=== PATIENT | female | born 1975 | race Caucasian/White ===

== ENCOUNTER 2020-05-20 10:30 | Outpatient (RCR) | payer OTHER, SELFPAY ==
--- NOTE | 2020-03-10 09:42 | PTOPEVAL ---
Thank you for referring Ree May to [facility]. Please review, sign, date and return this plan of care FABRIZIO. I agree with and certify that the following plan of care is medically necessary. Referring Physician Date Attending Provider: PHYSICIAN NOT ON STAFF Referring Provider: Jorgito Olmedo DMD *PT Outpatient Evaluation Start: 03/04/20 11:00 Status: Active Protocol: Document 03/04/20 11:00 [facility] Therapy Assessment Status Assessment Status Assessment Status Evaluation Outpatient Past Medical History Gastrointestinal History Hx Esophageal Disorders Yes: has stricture Hx Gastroesophageal Reflux Disease Yes Hx Other Gastrointestinal Disorders Yes: unable to swallow meat Musculoskeletal History Hx Back Pain Yes: Back pain; shoulder pain Hx Other Musculoskeletal Disorders Yes: chronic TMJ Endocrine History Hx Thyroidectomy Yes: ~7 yrs ago secondary to cancer Pain History Has Past Pain Affected Your Daily Life Yes: Thorax/back pain; upper abdominal;TMJ Any Barriers to Reporting Pain and Using Yes: weened of antidepressants Analgesics Anesthesia History Hx Other Anesthesia Reactions Yes: doesn't tolerate general anesthetic Other History Hx Cancer Yes: thyroid Evaluation Information Problem Diagnosis TMJ Onset ~1 month ago Cause choked on meat and triggered spasm/stress response Subjective Information Pt reports the above incident Query Text:As Reported By Patient/ resulted in vomiting for 12 Family hours, going to ED, being intubated. This has reflared her TMJ, chest, and back pain. Diagnostic Tests Other Tests For This Problem They are recommending a scope. She is deciding when she will have that done. Previous Treatments Previous Treatments For This Problem Pt has always responded well to JFB MFR technique Prior Level of Function Home Setting Home Type House Living Situation With Minor Child,With Spouse Pain Assessment Timing of Pain Assessment Timing of Pain Assessment Assessment Pain Scale Pain Scale Used Numeric (1 - 10) Self Report Pain Assessment Bilateral Reported Pain Level 6 Pain Description Aching,Aarti,Crushing, Pressure,Radiating,Shooting, Tender on Palpation,Tightness Pain Frequency Continuous Pain Level Goal 3 Interventi
--- NOTE | 2020-06-08 10:33 | PCPTNOTE ---
The patient will be continuing care under V#[id number]
== END 2020-05-29 11:47 | disposition home or self-care (01) ==
LOC: ANHPT 10:30
DX: M26.629 Arthralgia of temporomandibular joint, unspecified side (principal)
CPT/HCPCS: 97110; 97140; 97161

== ENCOUNTER 2020-07-20 10:30 | Outpatient (RCR) | payer OTHER, SELFPAY ==
--- NOTE | 2020-06-01 10:36 | PCPTNOTE ---
This V# is a continuation of [id number]
--- NOTE | 2020-06-08 14:04 | PTOPEVAL ---
Thank you for referring Ree May to [facility].? The patient is scheduled to be seen for therapy? 1x/month for 3 months. Please review, sign, date and return this plan of care FABRIZIO. I agree with and certify that the following plan of care is medically necessary. Referring Physician Date Attending Provider: PHYSICIAN NOT ON STAFF *PT Outpatient Progress Start: 06/01/20 10:37 Status: Active Document 06/01/20 13:19 [facility] [address] (Rec: 06/08/20 14:02 [facility] [address] [address] [id number]) Therapy Assessment Status Assessment Status Assessment Status Progress Yes: thyroid Pain Assessment Timing of Pain Assessment Timing of Pain Assessment Re-assessment Pain Scale Pain Scale Used Numeric (1 - 10) Self Report Pain Assessment Right Jaw(s) Reported Pain Level 6 Right Shoulder(s) Reported Pain Level 3 Left Hip(s) Reported Pain Level 3 Pain Score Pain Score 3,3,6: Self Report Cervical and Lumbar ROM Cervical ROM Cervical Flexion (0-60) 45 Query Text:Active in Degrees Cervical Extension (0-70) 70 Query Text:Active in Degrees Cervical Lateral Flexion Right (0-50) 50 Query Text:Active in Degrees Cervical Lateral Flexion Left (0-50) 30 Query Text:Active in Degrees Cervical Rotation Right (0-90) 70 Query Text:Active in Degrees Cervical Rotation Left (0-90) 90 Query Text:Active in Degrees Cervical ROM Comments Pt rests in R Sidebent position TMJ ROM TMJ Opening (0-60 MM) 20 TMJ Lateral Opening Right (0-20MM) 5 TMJ Lateral Opening Left (0-20 MM) 10 Deviation with Opening Riyck-Hutw-Wmujr Upper Extremity Range of Motion General Upper Extremity Range of Motion Reason Not Measured WNL/Right Gross Upper Extremity Range of Motion Discomfort at 140; with ROM Comments there was a pop with relief Lower Extremity Range of Motion General Lower Extremity Range of Motion Reason Not Measured WFL/Left Gross Lower Extremity Range of Motion Pt fell on L hip and it is Comments approximated in the pelvis Muscle Length Testing Muscle Length Testing Scalene Group Muscle Length (R) Moderate Tightness,(L) Query Text: Moderate Tightness Scalenes Posterior Muscle Length (R) Moderate Tightness,(L) Query Text: Moderate Tightness Upper Trapezius Muscle Length (R) Mild Tightness,(L) Mild Tightness Levaetor Scapulae Muscle Length (R) Moderate Tightness,(L) Moderate Tightness Sternocleidomastoid Muscle Length (L) Mild Tightness,(R) Moderate Tightness Pectoralis Major- Clavicular Fibers (R) Mild Tightness,(L) Mild
--- NOTE | 2020-11-16 12:54 | PCPTNOTE ---
PHYSICAL THERAPY DISCHARGE Attending Provider: PHYSICIAN NOT ON STAFF Patient:Ree May Date of :1975 Patient has not returned for any further treatments since 07/20/2020, therefore she will be discharged at this time. The goals were met with decreased pain/symptoms. Pt left for vacation in August and did not feel need to return for services. Thank you for referring this patient to [facility]. Please review, sign, date and return this discharge summary FABRIZIO. I have been updated about the patient's current status and I agree with discharge from the above service at this time. Referring Physician Date
== END 2020-09-22 23:59 | disposition home or self-care (01) ==
LOC: ANHPT 10:30
DX: M26.629 Arthralgia of temporomandibular joint, unspecified side (principal)
CPT/HCPCS: 97110; 97140

== ENCOUNTER → 2020-10-30 10:10 | Outpatient (CLI) | payer OTHER, SELFPAY ==
--- NOTE | ~2020-10-30 | MM_ITS ---
EXAMINATION: MM scrn maru implant BI w jazmine HISTORY: Screening mammogram TECHNIQUE: Craniocaudal and mediolateral oblique 3-D tomosynthesis images with implant displacement a nd synthetic 2-D images were generated. Craniocaudal and mediolateral oblique views of the breasts wi thout implant displacement were obtained using full field digital mammography. CAD analysis was submi tted and interpreted. COMPARISON: Comparison to multiple prior studies sequentially, with oldest reviewed study dated 02/20. BREAST PARENCHYMAL COMPOSITION: The breasts are heterogeneously dense, which may obscure small masses . FINDINGS: There is no evidence of suspicious mass, calcification, or architectural distortion to sugg est malignancy in either breast. There has been no suspicious interval change. IMPRESSION: 1. No mammographic evidence of malignancy. 2. Recommend routine screening mammography in one year. BI-RADS Category 1: Negative Reviewed, dictated and finalized at location A. AGENT
== END ==
PROVIDERS: Visit Provider Obstetrics & Gynecology
DX: Z12.31 Encounter for screening mammogram for malignant neoplasm of breast (principal)
CPT/HCPCS: 77063; 77067

== ENCOUNTER 2020-11-09 07:32 | Outpatient (CLI) | payer OTHER, SELFPAY ==
--- NOTE | 2020-11-09 07:57 | ECHO_ITS ---
Patient Info Name: Ree Cohen Black Age: 45 years : 1975 Gender: Female Ht: 68 in Wt: 130 lbs BSA: 1.68 m2 HR: 60 bpm BP: 119 / 78 mmHg Technical Quality: Fair Exam Date: 11/09/2020 8:11 AM Exam Location: [facility] Patient Status: Outpatient Admit Date: 11/09/2020 Staff Ordering Physician: Govind Rojas DO Forwarder Operator: Maria Luisa Alvares RDCS Attending Provider: Govind Rojas DO Referring Physician: Bob PARRA; Exam Type: CA echo doppler color flow Study Info Indications I34.1 - Nonrheumatic mitral (valve) prolapse Complete two-dimensional, color flow and Doppler transthoracic echocardiogram is performed. Summary 1. Complete two-dimensional, color flow and Doppler transthoracic echocardiogram is performed. 2. Left ventricular chamber dimension is normal. 3. Left ventricular systolic function is normal, estimated at 60-65%. 4. The left ventricular diastolic function is normal. 5. E/e' 7 is not elevated. 6. Left atrial chamber dimension is mildly enlarged. 7. The mitral valve has moderate posterior prolapse. 8. No pulmonary hypertension, estimated pulmonary arterial systolic pressure is 29 mmHg. Left Ventricle E/e' 7 is not elevated. Left ventricular chamber dimension is normal. Left ventricular systolic function is normal, estimated at 60-65%. The left ventricular diastolic function is normal. Right Ventricle Right ventricular chamber dimension is normal. Right ventricular systolic function is normal. Left Atria Left atrial chamber dimension is mildly enlarged. Right Atria Right atrial chamber dimension is normal. Aortic Valve The aortic valve is trileaflet. There is no aortic valve stenosis. There is no aortic valve regurgitation. Pulmonic Valve There is no pulmonic regurgitation. Mitral Valve The mitral valve has moderate posterior prolapse. There is no mitral valve stenosis. There is no mitral valve regurgitation. Tricuspid Valve There is no tricuspid valve regurgitation. No pulmonary hypertension, estimated pulmonary arterial systolic pressure is 29 mmHg. Pericardium/Pleural There is no pericardial effusion. Inferior Vena Cava Normal inferior vena cava with >50% collapse upon inspiration consistent with normal right atrial pressure, 5 mmHg. Aorta The aortic root size at the sinus of Valsalva is normal. Left Ventricular Outflow Tract Name Value Normal LVOT 2D LVOT Diameter 2.0 cm LVOT Doppler LVOT Peak Gradient 3 mmHg LVOT Mean Gradient 2 mmHg LVOT VTI 19 cm LVOT VTI/AV VTI Ratio 0.9 LVOT Stroke Volume 56 ml LVOT CO 3.3 l/min LVOT CI 2.0 l/min/m2 Pulmonic Valve Name Value Normal RVOT Doppler
== END 2020-11-09 07:33 | disposition home or self-care (01) ==
PROVIDERS: PCP Family Medicine; Visit Provider Internal Medicine Cardiovascular Disease
DX: I34.1 Nonrheumatic mitral (valve) prolapse (principal); I51.7 Cardiomegaly
CPT/HCPCS: 93306

== ENCOUNTER → 2021-11-16 10:25 | Outpatient (CLI) | payer OTHER, SELFPAY ==
--- NOTE | ~2021-11-16 | MM_ITS ---
EXAMINATION: MM scrn maru implant BI w jazmine HISTORY: Screening TECHNIQUE: Craniocaudal and mediolateral oblique 3-D tomosynthesis images with implant displacement a nd synthetic 2-D images were generated. Craniocaudal and mediolateral oblique views of the breasts wi thout implant displacement were obtained using full field digital mammography. CAD analysis was submi tted and interpreted. COMPARISON: Comparison to multiple prior studies sequentially, with oldest reviewed study dated 02/27. BREAST PARENCHYMAL COMPOSITION: The breasts are heterogenously dense, which may obscure small masses FINDINGS: There is no evidence of suspicious mass, calcification, or architectural distortion to sugg est malignancy in either breast. There has been no suspicious interval change. IMPRESSION: 1. No mammographic evidence of malignancy. 2. Recommend routine screening mammography in one year. BI-RADS Category 1: Negative Reviewed, dictated and finalized at location A. NER OPEN END
== END ==
PROVIDERS: Visit Provider Obstetrics & Gynecology
DX: Z12.31 Encounter for screening mammogram for malignant neoplasm of breast (principal)
CPT/HCPCS: 77063; 77067

== ENCOUNTER → 2022-11-29 11:47 | Outpatient (CLI) | payer BC, SELFPAY ==
--- NOTE | ~2022-11-29 | MM_ITS ---
EXAMINATION: MM scrn maru implant BI w jazmine HISTORY: Comparison to multiple prior studies sequentially, with oldest reviewed study dated 05/27/20 16. TECHNIQUE: Craniocaudal and mediolateral oblique 3-D tomosynthesis images with implant displacement a nd synthetic 2-D images were generated. Craniocaudal and mediolateral oblique views of the breasts wi thout implant displacement were obtained using full field digital mammography. CAD analysis was submi tted and interpreted. COMPARISON: No prior mammogram is available for comparison at this institution. BREAST PARENCHYMAL COMPOSITION: The breasts are heterogeneously dense, which may obscure small masses . FINDINGS: There are asymmetries in the left breast seen on both implant displaced and implant views. The right breast is stable without evidence for malignancy. IMPRESSION: 1. Left breast asymmetries. 2. Additional mammographic views and possible breast ultrasound are recommended. BI-RADS Category 0: Incomplete: Needs additional imaging evaluation. Reviewed, dictated and finalized at location A. IMPRESSION: 1. Left breast asymmetries. 2. Additional mammographic views and possible breast ultrasound are recommended . BI-RADS Category 0: Incomplete: Needs additional imaging evaluation.
== END ==
PROVIDERS: PCP Family Medicine; Visit Provider Obstetrics & Gynecology
DX: Z12.31 Encounter for screening mammogram for malignant neoplasm of breast (principal); R92.8 Other abnormal and inconclusive findings on diagnostic imaging of breast
CPT/HCPCS: 77063; 77067

== ENCOUNTER 2022-12-06 00:39 | Day surgery (SDC) | payer BC, SELFPAY ==
[2022-11-23 14:11] VITALS: BMI 21.0
[2022-12-06 08:00] VITALS: BP 105/64; PULSE 67; RESP 20; TEMP 36.8; O2SAT 100; BMI 20.5
[2022-12-06] MEDS: LACTATED RINGERS 1,000 ML 150 ML IV CONT (08:13)
--- NOTE | 2022-12-06 08:28 | PM.HPGS ---
History of Present Illness History of Present Illness Consent: Risks, benefits, and alternatives have been discussed and questions answered. Patient agrees to proceed with procedure. Chief complaint: neoplam screening Narrative: Ree May is a 47 year old female Presents for screening colonoscopy. Patient's current weight appetite and bowel movements are normal. Patient denies abdominal pain. She has had no bleeding. Family history is significant both father and sister have had colon polyps. Her grandfather had colon cancer. Patient presents today for screening exam. Review of Systems Review of Systems: Review of systems noncontributory. [facility] Past Medical History Medical History Acne vulgaris Acute bronchitis, unspecified Acute sinusitis with symptoms > 10 days Allergic rhinitis, unspecified Anxiety BMI between 19-24,adult Body mass index [BMI] 20.0-20.9, adult (09/26/18) Chest discomfort Cough Dietary counseling and surveillance (12/18/17) Encounter for screening for lipoid disorders GERD without esophagitis Hiatal hernia Hx of mitral valve prolapse Insomnia, unspecified Low vitamin D level Mitral valve prolapse Other specified hypothyroidism Pain of upper abdomen Sleep arousal disorder Tension headache Thyroid cancer Surgical History Surgical History History of mitral valve repair History of thyroidectomy Family History Family History Father Hypertension Family history of coronary artery disease Family history of elevated blood lipids Family history of arthritis Family history of kidney disease Grandparent Hypertension Cerebrovascular accident Carcinoma of colon Family history of coronary artery disease Mother Family history of elevated blood lipids Family history of arthritis Other Family history of lung cancer Social History Social History Smoking status: Never smoker Second hand tobacco smoke exposure: Yes Alcohol intake: current Drinks per week: 3 Substance use: never Substance use type: does not use Living arrangements: with family Occupation/Education: occupation Gender identity (if verbalized by the patient): Female Spiritual care concerns: No Meds Home Medications and Allergies Home Medications Medication Instructions Recorded Confirmed Type thyroid (pork) 90 mg tablet 90 mg PO DAILY 10/07/19 11/23/22 History ([place] Thyroid) estradiol 0.5 mg/0.5 gram (0.1 %) 1 packet transdermal DAILY 10/08/19 11/23/22 History transdermal gel packet progesterone micronized 100 mg 100 mg PO QAM 10/08/19 11/23/22 History capsule levothyroxine 25 mcg tablet 25 mcg PO DAILY 11/23/22 11/23/22 History Allergies Allergy/AdvReac Type Severity Reaction Status Date / Time attapulgite Allergy Unknown HIVES Verified 12/06/22 07:58 camphor Allergy Unknown Unknown Verified 12/06/22 07:58 menthol Allergy Unknown Unknown Verified 12/06/22 07:58 fentanyl AdvReac Severe SEVERE, Verified 12/06/22 07:58 PROLONGED N&V Vital Signs Vital Signs - 24 hr 12/06/22 08:00 Temperature 98.2 F Pulse Rate 67 Respiratory Rate 20 Blood Pressure 105/64 Pulse Oximetry 100 Oxygen Delivery Room Air Exam Narrative: Physical exam reveals patient to be alert. Vital signs stable. HEENT exam is unremarkable. Patient is anicteric. Lungs are clear to auscultation and percussion. Heart is without murmur or extra sounds. Abdomen bowel sounds are present soft nontender with no organomegaly. Digital external rectal exam is normal. Assessment and Plan Assessment and plan (1) Family history of colonic polyps: Code(s): Z83.71 - Family history of colonic polyps Status: Acute Assessment and Plan: Patient has a family
--- NOTE | 2022-12-06 08:45 | WPDANESEPPF ---
Anes - Initial Pre Proc Eval Procedure: Operation Date: 12/06/22 09:00 Proposed Procedures p Screening Colonoscopy - Chad Cardoso MD Date/Time: 12/06/22 08:45 Surgeon: Chad Cardoso MD Pre Op Diagnosis: neoplam screening Patient Data Age: 47 Gender: F Height: 1.7 m Weight: 59.5 kg Last Vital Signs Temp 98.2 F 12/06/22 08:00 Pulse 67 12/06/22 08:00 Resp 20 12/06/22 08:00 BP 105/64 12/06/22 08:00 Pulse Ox 100 12/06/22 08:00 O2 Del Method Room Air 12/06/22 08:00 Allergies Allergy/AdvReac Type Severity Reaction Status Date / Time attapulgite Allergy Unknown HIVES Verified 12/06/22 07:58 camphor Allergy Unknown Unknown Verified 12/06/22 07:58 menthol Allergy Unknown Unknown Verified 12/06/22 07:58 fentanyl AdvReac Severe SEVERE, Verified 12/06/22 07:58 PROLONGED N&V Home Medications Medication Instructions Recorded Confirmed Type thyroid (pork) 90 mg tablet 90 mg PO DAILY 10/07/19 11/23/22 History ([place] Thyroid) estradiol 0.5 mg/0.5 gram (0.1 %) 1 packet transdermal DAILY 10/08/19 11/23/22 History transdermal gel packet progesterone micronized 100 mg 100 mg PO QAM 10/08/19 11/23/22 History capsule levothyroxine 25 mcg tablet 25 mcg PO DAILY 11/23/22 11/23/22 History Patient hx anesthesia problems: none Family hx anesthesia problems: none Results Review: All pre-operative results and documents have been reviewed as part of the pre-operative evaluation. [facility] Past Medical History Medical History Acne vulgaris Acute bronchitis, unspecified Acute sinusitis with symptoms > 10 days Allergic rhinitis, unspecified Anxiety BMI between 19-24,adult Body mass index [BMI] 20.0-20.9, adult (09/26/18) Chest discomfort Cough Dietary counseling and surveillance (12/18/17) Encounter for screening for lipoid disorders GERD without esophagitis Hiatal hernia Hx of mitral valve prolapse Insomnia, unspecified Low vitamin D level Mitral valve prolapse Other specified hypothyroidism Pain of upper abdomen Sleep arousal disorder Tension headache Thyroid cancer Surgical History Surgical History History of mitral valve repair History of thyroidectomy Family History Family History Father Hypertension Family history of coronary artery disease Family history of elevated blood lipids Family history of arthritis Family history of kidney disease Grandparent Hypertension Cerebrovascular accident Carcinoma of colon Family history of coronary artery disease Mother Family history of elevated blood lipids Family history of arthritis Other Family history of lung cancer Social History Social History Smoking status: Never smoker Second hand tobacco smoke exposure: Yes Alcohol intake: current Drinks per week: 3 Substance use: never Substance use type: does not use Living arrangements: with family Occupation/Education: occupation Gender identity (if verbalized by the patient): Female Spiritual care concerns: No Anes - Eval Final PreProcedure Day of Procedure 12/06/22 08:45 Patient weight: normal Heart: regular rate and rhythm Lungs: clear to auscultation Airway: Mallampati scale class II Neurological: alert and oriented Last oral intake: >/= 8 hours ASA classification: III Emergent: no Anesthetic plan: proceed Anesthesia type and monitoring: general GIVS and standard monitoring Results Review: All pre-operative results and documents have been reviewed as part of the pre-operative evaluation. Informed Consent: The patient's anesthetic plan and its attendant risks and benefits were discussed with the patient/family/POA. Questions were solicited and answers provided to the satisfaction of the patient/family/POA.
[2022-12-06 09:36] VITALS: BP 84/47; PULSE 57; RESP 14; O2SAT 99
[2022-12-06 09:42] VITALS: BP 93/59; PULSE 68; RESP 21; O2SAT 100
[2022-12-06 09:46] VITALS: BP 117/62; PULSE 72; RESP 21; O2SAT 100
[2022-12-06 09:56] VITALS: BP 105/67; PULSE 61; RESP 17; O2SAT 100
== END 2022-12-06 10:10 | disposition home or self-care (01) ==
PROVIDERS: PCP Family Medicine; Visit Provider Internal Medicine Gastroenterology
PROC: 0DJD8ZZ Inspection of Lower Intestinal Tract, Via Natural or Artificial Opening Endoscopic (ICD-10-PCS; CPT 45378; principal; 2022-12-06 09:00)
DX: Z12.11 Encounter for screening for malignant neoplasm of colon (principal); K64.8 Other hemorrhoids; Z86.73 Personal history of transient ischemic attack (TIA), and cerebral infarction without residual deficits; E89.0 Postprocedural hypothyroidism; Z85.850 Personal history of malignant neoplasm of thyroid
CPT/HCPCS: 45378; J2704; J7120

== ENCOUNTER → 2022-12-27 08:53 | Outpatient (CLI) | payer BC, SELFPAY ==
--- NOTE | ~2022-12-27 | MMUS_ITS ---
EXAMINATION: MM diag maru implant LT w jazmine, US breast LT limited HISTORY: Left breast asymmetries on screening mammogram TECHNIQUE: Craniocaudal, mediolateral, and mediolateral oblique 3-D tomosynthesis images with implant displacement of the left breast were performed and synthetic 2-D images were generated. Mediolatera l views of the left breast without implant displacement were obtained using full field digital mammog vic. CAD analysis was submitted and interpreted. High resolution limited left breast ultrasound was performed. COMPARISON: 11/29/2022, 11/16/2021, 10/30/2020 , 10/07/2019 FINDINGS: MAMMOGRAPHIC FINDINGS: There is a return to baseline fibroglandular appearance with spot compression of the left breast in t he areas questioned on screening mammogram. ULTRASOUND: There is a 4 mm round, circumscribed, hypoechoic mass with mild posterior acoustic enhancement and no internal vascularity at the 12:00 location, 3 cm from the nipple. There is a 5 mm x 2 mm oval, circu mscribed, parallel, hypoechoic mass with no posterior features or internal vascularity at the 1:00 lo cation, 7 cm from the nipple. Small cysts are noted at the 12:00 and 1:00 locations. IMPRESSION: 1. Probably benign sonographically detected left breast masses. 2. Recommend 6 month follow-up left diagnostic mammogram and ultrasound. BI-RADS category 3, probably benign findings. Reviewed, dictated and finalized at location A. IMPRESSION: 1. Probably benign sonographically detected left breast masses. 2. Recommend 6 month follow-up left diagnostic mammogram and ultrasound. BI-RADS category 3, probably benign findings.
== END ==
PROVIDERS: PCP Family Medicine; Visit Provider Obstetrics & Gynecology
DX: N63.20 Unspecified lump in the left breast, unspecified quadrant (principal)
CPT/HCPCS: 76642; 77061; 77065; G0279

== ENCOUNTER → 2023-06-15 08:53 | Outpatient (CLI) | payer BC, SELFPAY ==
--- NOTE | ~2023-06-15 | MMUS_ITS ---
EXAMINATION: MM diag maru implant LT w jazmine, US breast LT limited HISTORY: Six-month follow-up for probably benign left breast masses TECHNIQUE: Craniocaudal, mediolateral, and mediolateral oblique 3-D tomosynthesis images with implant displacement of the left breast were performed and synthetic 2-D images were generated. Craniocauda l, mediolateral oblique, and mediolateral views of the left breast without implant displacement were obtained using full field digital mammography. CAD analysis was submitted and interpreted. High resol ution left breast ultrasound was performed. COMPARISON: 12/27/2022, 11/29/2022, 11/16/2021 BREAST PARENCHYMAL COMPOSITION: The breasts are heterogeneously dense, which may obscure small masses . FINDINGS: MAMMOGRAPHIC FINDINGS: No suspicious mass, calcification, or architectural distortion are identified to suggest malignancy. There has been no suspicious interval change. ULTRASOUND: There is a stable 4 mm round, circumscribed, hypoechoic mass with no posterior features or internal v ascularity at the 12:00 location, 3 cm from the nipple. There is a stable 5 mm x 2 mm oval, circumscr ibed, parallel, hypoechoic mass with no posterior features or internal vascularity at the 1:00 locati on, 8 cm from the nipple. IMPRESSION: 1. Stable, probably benign left breast masses. 2. Recommend 6 month follow-up bilateral diagnostic mammogram and left breast ultrasound. BI-RADS category 3, probably benign findings. Reviewed, dictated and finalized at location A. IMPRESSION: 1. Stable, probably benign left breast masses. 2. Recommend 6 month follow-up bilateral diagnostic mammogram and left breast u ltrasound. BI-RADS category 3, probably benign findings.
== END ==
PROVIDERS: PCP Obstetrics & Gynecology; Visit Provider Obstetrics & Gynecology
DX: R92.8 Other abnormal and inconclusive findings on diagnostic imaging of breast (principal)
CPT/HCPCS: 76642; 77061; 77065; G0279

== ENCOUNTER 2025-03-25 13:17 | Outpatient (CLI) | payer OTHER, SELFPAY ==
--- NOTE | ~2025-03-25 | US_ITS ---
US pelvic complete w TV Ordering provider: Elgin Ford MD History: . N95.0 - Postmenopausal bleeding . Comparison: None. Technique: Transabdominal and endovaginal ultrasound of the pelvis (Doppler ultrasound interrogation techniques used as needed for this exam.) FINDINGS: CERVIX: Normal. UTERUS: Measures 5.6x 3.2x 4 cm in length which is within normal limits and is anteverted. No myomet rial masses. ENDOMETRIUM: Normal in thickness measuring 4 mm. (Calcified. CUL DE SAC: No free fluid. RIGHT OVARY: Not demonstrated. LEFT OVARY: Not demonstrated. ADNEXA: Normal. No mass. IMPRESSION: Calcified endometrium. Nonvisualization of the ovaries. Otherwise, normal pelvic ultrasound. Reviewed, dictated and finalized at location A. IMPRESSION: Calcified endometrium. Nonvisualization of the ovaries. Otherwise, normal pelvi c ultrasound.
== END 2025-03-25 13:18 | disposition home or self-care (01) ==
LOC: MICIMG 13:18
PROVIDERS: PCP Obstetrics & Gynecology; Visit Provider Obstetrics & Gynecology
DX: N85.8 Other specified noninflammatory disorders of uterus (principal); N95.0 Postmenopausal bleeding
CPT/HCPCS: 76830; 76856

== ENCOUNTER 2025-08-14 04:27 | Day surgery (SDC) | payer OTHER, SELFPAY ==
--- OUTSIDE RECORDS SUMMARY | 2018-08-22 | XMS_ITS | Encounter Summary ---
Author Organization [facility] Healthcare Address [address] [place] [address] Care Team Providers Care Net Solutions Architect Name Role Phone Jorge Urias MD Primary Care Provider [phone] Reason for Visit * Diagnostic Imaging (Routine) - Closed Specialty Diagnoses / Procedures Referred By Alek patel Referred To Contact Procedures Breast Imaging Screening Outside Reference Transcribed Order, Provider Referral ID Status Reason Start Date Expiration Date Visits Re quested Visits Authorized [id number] Closed 01/19/2024 02/17/2025 1 1 Encounter Details Date Type Department Care Team (Late st Contact Info) Description 08/22/2018 Hospital Encounter [facility] [address] [place] [id number] Social History Tobacco Use Types Packs/Day Years Used Date Smoking Tobacco: Never Passive Smoke Exposure: Never Smokeless Tobacco: Never AUDIT-C Answer Date Recorded Q1: How often do you have a drink containing alc ohol? 2-3 times a week 03/22/2024 Q2: How many drinks containi ng alcohol do you have on a typical day when you are drinking? 1 or 2 03/22/2024 Frequency of Binge Drinking Not on file 03/11 Comments Unknown Sex and Gender Information Value Date Recorded Sex Assigned at Not on file Legal Sex Female 7:05 AM OLERICULTURIST Gender Identity Female 07/13/2021 1:56 PM CDT Sexual Orientation Not on file documented as of this encounter Functional Status * BP Location Answer Date of Assessment Author Left arm 08/22/2023 4:04 PM OLERICULTURIST Yusuf Lino, CHIP MUCKER * Alcohol Withdrawal BP Hierarchy Answer Date of Assessment Author 76 08/23/2022 3:51 PM OLERICULTURIST Noa Sol CMA * Alcohol Use Question Answer Date of Assessment Author Q1: How often do you have a drink containing alcohol? 2-3 times a week 03/22/2024 8:08 AM CDT Jocelynn Lind RMA Q2: How many drinks containing alcohol do you have on a typical day when you are drinking? 1 or 2 03/22/2024 8:08 AM CDT Suyapa Lind RMA * BP Location Answer Date of Assessment Author Left arm 08/22/2023 4:04 PM OLERICULTURIST Yusuf Lino CMA documented as of this encounter Plan of Treatment Not on file documented as of this encounter Procedures Procedure Name Priority Date/Time Associated Diagnosis Comments BREAST IMAGING MG SCREENING OUTSIDE REFERENCE Routine 08/22/2018 12:00 AM OLERICULTURIST documented in this encounter Results * Breast Imaging Screening Outside Reference (08/22/2018 12:00 AM OLERICULTURIST) Impressions [facility] - 01/19/2024 12:12 PM CDT These images are for Reference purposes only and have not been reviewed by [facility]iology. There will be no report generated by a [facility] Radiologist. Narrative [facility] - 01/19/2024 12:12 PM CDT EXAMINATION: Images For Reference Purposes Only us Provider Transcribed Order IMG MAMMO PROCEDURES Final Result [facility] documented in this encounter Visit Diagnoses Not on filedocumented in this encounter Care Teams Net Solutions Architect Relationship Specialty Start Date End Date Jorge Urias MD PCP - General 04/19/17 documented as of this encounter
--- OUTSIDE RECORDS SUMMARY | 2018-08-22 | XMS_ITS | Encounter Summary ---
Author Organization [facility] Healthcare Address [address] [place] [address] Care Team Providers Care Picking Belt Operator Name Role Phone Jorge Urias MD Primary Care Provider [phone] Reason for Visit * Diagnostic Imaging (Routine) - Closed Specialty Diagnoses / Procedures Referred By Alek patel Referred To Contact Procedures Breast Imaging Screening Outside Reference Transcribed Order, Provider Referral ID Status Reason Start Date Expiration Date Visits Re quested Visits Authorized [id number] Closed 01/19/2024 02/17/2025 1 1 Encounter Details Date Type Department Care Team (Late st Contact Info) Description 08/22/2018 Hospital Encounter [facility] [address] [place] [id number] Social History Tobacco Use Types Packs/Day Years [...] on file Legal Sex Female 7:05 AM SWITCHBOX ASSEMBLER Gender Identity Female 07/13/2021 1:56 PM CDT Sexual Orientation Not on file documented as of this encounter Functional Status * BP Location Answer Date of Assessment Author Left arm 08/22/2023 4:04 PM SWITCHBOX ASSEMBLER Yusuf Lino, MIDDLE SCHOOL TUTOR * Alcohol Withdrawal BP Hierarchy Answer Date of Assessment Author 76 08/23/2022 3:51 PM SWITCHBOX ASSEMBLER Noa Sol CMA * Alcohol Use Question [...] Assessment Author Left arm 08/22/2023 4:04 PM SWITCHBOX ASSEMBLER Yusuf Lino CMA documented as of this encounter Plan of Treatment Not on file documented as of this encounter Procedures Procedure Name Priority Date/Time Associated Diagnosis Comments BREAST IMAGING MG SCREENING OUTSIDE REFERENCE Routine 08/22/2018 12:00 AM SWITCHBOX ASSEMBLER documented in this encounter Results * Breast Imaging Screening Outside Reference (08/22/2018 12:00 AM SWITCHBOX ASSEMBLER) Impressions [facility] - 01/19/2024 12:12 PM CDT These images are for Reference purposes only and have not been reviewed by [facility] Radiology. There will be no report generated by a [facility] Radiologist. Narrative [facility] - 01/19/2024 12:12 PM CDT EXAMINATION: Images For Reference Purposes Only us Provider Transcribed Order IMG MAMMO PROCEDURES Final Result [facility] documented in this encounter Visit Diagnoses Not on filedocumented in this encounter Care Teams Picking Belt Operator Relationship Specialty Start Date End Date Jorge Urias MD PCP - General 04/19/17 documented as of this encounter
--- OUTSIDE RECORDS SUMMARY | 2018-08-22 | XMS_ITS | Encounter Summary ---
Author Organization [facility] Healthcare Address [address] [place] [address] Care Team Providers Care Client Technical Professional Name Role Phone Jorge Urias MD Primary Care Provider [phone] Reason for Visit * Diagnostic Imaging (Routine) - Closed Specialty Diagnoses / Procedures Referred By Alek patel Referred To Contact Procedures Breast Imaging Screening Outside Reference Transcribed Order, Provider Referral ID Status Reason Start Date Expiration Date Visits Re quested Visits Authorized [id number] Closed 01/19/2024 02/17/2025 1 1 Encounter Details Date Type Department Care Team (Late st Contact Info) Description 08/22/2018 Hospital Encounter [facility] [address] [place] [id number] Social History Tobacco Use Types Packs/Day Years [...] on file Legal Sex Female 7:05 AM KILNMAN Gender Identity Female 07/13/2021 1:56 PM CDT Sexual Orientation Not on file documented as of this encounter Functional Status * BP Location Answer Date of Assessment Author Left arm 08/22/2023 4:04 PM KILNMAN Yusuf Lino, FOOT SPECIALIST * Alcohol Withdrawal BP Hierarchy Answer Date of Assessment Author 76 08/23/2022 3:51 PM KILNMAN Noa Sol CMA * Alcohol Use Question [...] Assessment Author Left arm 08/22/2023 4:04 PM KILNMAN Yusuf Lino CMA documented as of this encounter Plan of Treatment Not on file documented as of this encounter Procedures Procedure Name Priority Date/Time Associated Diagnosis Comments BREAST IMAGING MG SCREENING OUTSIDE REFERENCE Routine 08/22/2018 12:00 AM KILNMAN documented in this encounter Results * Breast Imaging Screening Outside Reference (08/22/2018 12:00 AM KILNMAN) Impressions [facility] - 01/19/2024 12:12 PM CDT These images are for Reference purposes only and have not been reviewed by [facility]. There will be no report generated by a [facility] Radiologist. Narrative [facility] - 01/19/2024 12:12 PM CDT EXAMINATION: Images For Reference Purposes Only us Provider Transcribed Order IMG MAMMO PROCEDURES Final Result [facility] documented in this encounter Visit Diagnoses Not on filedocumented in this encounter Care Teams Client Technical Professional Relationship Specialty Start Date End Date Jorge Urias MD PCP - General 04/19/17 documented as of this encounter
--- OUTSIDE RECORDS SUMMARY | 2019-10-07 | XMS_ITS | Encounter Summary ---
Author Organization [facility] Healthcare Address [address] [place] [address] Care Team Providers Care Internet Systems Administrator Name Role Phone Jorge Urias MD Primary Care Provider [phone] Reason for Visit * Diagnostic Imaging (Routine) - Closed Specialty Diagnoses / Procedures Referred By Alek patel Referred To Contact Procedures Breast Imaging Screening Outside Reference Transcribed Order, Provider Referral ID Status Reason Start Date Expiration Date Visits Re quested Visits Authorized [id number] Closed 01/19/2024 02/17/2025 1 1 Encounter Details Date Type Department Care Team (Late st Contact Info) Description 10/07/2019 Hospital Encounter [facility] [address] [place] [phone] Social History Tobacco Use Types Packs/Day Years [...] on file Legal Sex Female 7:05 AM REGISTERED NURSE OBSTETRICS Gender Identity Female 07/13/2021 1:56 PM CDT Sexual Orientation Not on file documented as of this encounter Functional Status * BP Location Answer Date of Assessment Author Left arm 08/22/2023 4:04 PM REGISTERED NURSE OBSTETRICS Yusuf Linoa, MIXER AND BLENDER * Alcohol Withdrawal BP Hierarchy Answer Date of Assessment Author 76 08/23/2022 3:51 PM REGISTERED NURSE OBSTETRICS Noa Sol CMA * Alcohol Use Question [...] Assessment Author Left arm 08/22/2023 4:04 PM REGISTERED NURSE OBSTETRICS Yusuf Lino CMA documented as of this encounter Plan of Treatment Not on file documented as of this encounter Procedures Procedure Name Priority Date/Time Associated Diagnosis Comments BREAST IMAGING MG SCREENING OUTSIDE REFERENCE Routine 10/07/2019 12:00 AM REGISTERED NURSE OBSTETRICS documented in this encounter Results * Breast Imaging Screening Outside Reference (10/07/2019 12:00 AM REGISTERED NURSE OBSTETRICS) Impressions [facility] - 01/19/2024 12:12 PM CDT These images are for Reference purposes only and have not been reviewed by [facility] Radiology. There will be no report generated by a [facility] Radiologist. Narrative [facility] - 01/19/2024 12:12 PM CDT EXAMINATION: Images For Reference Purposes Only us Provider Transcribed Order IMG MAMMO PROCEDURES Final Result [facility] documented in this encounter Visit Diagnoses Not on filedocumented in this encounter Care Teams Internet Systems Administrator Relationship Specialty Start Date End Date Jorge Urias MD PCP - General 04/19/17 documented as of this encounter
--- OUTSIDE RECORDS SUMMARY | 2019-10-07 | XMS_ITS | Encounter Summary ---
Author Organization [facility] Healthcare Address [address] [place] [address] Care Team Providers Care Protective Signal Repairer Name Role Phone Jorge Urias MD Primary Care Provider [phone] Reason for Visit * Diagnostic Imaging (Routine) - Closed Specialty Diagnoses / Procedures Referred By Alek patel Referred To Contact Procedures Breast Imaging Screening Outside Reference Transcribed Order, Provider Referral ID Status Reason Start Date Expiration Date Visits Re quested Visits Authorized [id number] Closed 01/19/2024 02/17/2025 1 1 Encounter Details Date Type Department Care Team (Late st Contact Info) Description 10/07/2019 Hospital Encounter [facility] [address] [place] [phone] Social History Tobacco Use Types Packs/Day Years [...] on file Legal Sex Female 7:05 AM AIR MOTOR REPAIRER Gender Identity Female 07/13/2021 1:56 PM CDT Sexual Orientation Not on file documented as of this encounter Functional Status * BP Location Answer Date of Assessment Author Left arm 08/22/2023 4:04 PM AIR MOTOR REPAIRER Yusuf Linoa, SHAVING MACHINE OPERATOR * Alcohol Withdrawal BP Hierarchy Answer Date of Assessment Author 76 08/23/2022 3:51 PM AIR MOTOR REPAIRER Noa Sol CMA * Alcohol Use Question [...] Assessment Author Left arm 08/22/2023 4:04 PM AIR MOTOR REPAIRER Yusuf Lino CMA documented as of this encounter Plan of Treatment Not on file documented as of this encounter Procedures Procedure Name Priority Date/Time Associated Diagnosis Comments BREAST IMAGING MG SCREENING OUTSIDE REFERENCE Routine 10/07/2019 12:00 AM AIR MOTOR REPAIRER documented in this encounter Results * Breast Imaging Screening Outside Reference (10/07/2019 12:00 AM AIR MOTOR REPAIRER) Impressions [facility] - 01/19/2024 12:12 PM CDT These images are for Reference purposes only and have not been reviewed by [facility] Radiology. There will be no report generated by a [facility] Radiologist. Narrative [facility] - 01/19/2024 12:12 PM CDT EXAMINATION: Images For Reference Purposes Only us Provider Transcribed Order IMG MAMMO PROCEDURES Final Result [facility] documented in this encounter Visit Diagnoses Not on filedocumented in this encounter Care Teams Protective Signal Repairer Relationship Specialty Start Date End Date Jorge Urias MD PCP - General 04/19/17 documented as of this encounter
--- OUTSIDE RECORDS SUMMARY | 2019-10-07 | XMS_ITS | Encounter Summary ---
Author Organization [facility] Healthcare Address [address] [place] [address] Care Team Providers Care Recreational Vehicle Resort Manager Name Role Phone Jorge Urias MD Primary Care Provider [phone] Reason for Visit * Diagnostic Imaging (Routine) - Closed Specialty Diagnoses / Procedures Referred By Alek patel Referred To Contact Procedures Breast Imaging Screening Outside Reference Transcribed Order, Provider Referral ID Status Reason Start Date Expiration Date Visits Re quested Visits Authorized [id number] Closed 01/19/2024 02/17/2025 1 1 Encounter Details Date Type Department Care Team (Late st Contact Info) Description 10/07/2019 Hospital Encounter [facility] [address] [place] [phone] Social History Tobacco Use Types Packs/Day Years [...] on file Legal Sex Female 7:05 AM BEADER Gender Identity Female 07/13/2021 1:56 PM CDT Sexual Orientation Not on file documented as of this encounter Functional Status * BP Location Answer Date of Assessment Author Left arm 08/22/2023 4:04 PM BEADER Yusuf Linoa, INSTRUCTOR PSYCHIATRIC AIDE * Alcohol Withdrawal BP Hierarchy Answer Date of Assessment Author 76 08/23/2022 3:51 PM BEADER Noa Sol CMA * Alcohol Use Question [...] Assessment Author Left arm 08/22/2023 4:04 PM BEADER Yusuf Lino CMA documented as of this encounter Plan of Treatment Not on file documented as of this encounter Procedures Procedure Name Priority Date/Time Associated Diagnosis Comments BREAST IMAGING MG SCREENING OUTSIDE REFERENCE Routine 10/07/2019 12:00 AM BEADER documented in this encounter Results * Breast Imaging Screening Outside Reference (10/07/2019 12:00 AM BEADER) Impressions [facility] - 01/19/2024 12:12 PM CDT These images are for Reference purposes only and have not been reviewed by [facility] Radiology. There will be no report generated by a [facility] Radiologist. Narrative [facility] - 01/19/2024 12:12 PM CDT EXAMINATION: Images For Reference Purposes Only us Provider Transcribed Order IMG MAMMO PROCEDURES Final Result [facility] documented in this encounter Visit Diagnoses Not on filedocumented in this encounter Care Teams Recreational Vehicle Resort Manager Relationship Specialty Start Date End Date Jorge Urias MD PCP - General 04/19/17 documented as of this encounter
--- OUTSIDE RECORDS SUMMARY | 2020-10-30 | XMS_ITS | Encounter Summary ---
Author Organization [facility] Healthcare Address [address] [place] [address] Care Team Providers Care International Organizer Name Role Phone Jorge rUias MD Primary Care Provider [phone] Reason for Visit * Diagnostic Imaging (Routine) - Closed Specialty Diagnoses / Procedures Referred By Alek patel Referred To Contact Procedures Breast Imaging Screening Outside Reference Transcribed Order, Provider Referral ID Status Reason Start Date Expiration Date Visits Re quested Visits Authorized [id number] Closed 01/19/2024 02/17/2025 1 1 Encounter Details Date Type Department Care Team (Late st Contact Info) Description 10/30/2020 Hospital Encounter [facility] [address] [place] [id number] Social History Tobacco Use Types Packs/Day Years [...] on file Legal Sex Female 7:05 AM SWITCH ENGINEER Gender Identity Female 07/13/2021 1:56 PM CDT Sexual Orientation Not on file documented as of this encounter Functional Status * BP Location Answer Date of Assessment Author Left arm 08/22/2023 4:04 PM SWITCH ENGINEER Yusuf Lino arra, EDI MANAGER * Alcohol Withdrawal BP Hierarchy Answer Date of Assessment Author 76 08/23/2022 3:51 PM SWITCH ENGINEER Noa Sol CMA * Alcohol Use Question [...] Assessment Author Left arm 08/22/2023 4:04 PM SWITCH ENGINEER Yusuf Lino CMA documented as of this encounter Plan of Treatment Not on file documented as of this encounter Procedures Procedure Name Priority Date/Time Associated Diagnosis Comments BREAST IMAGING MG SCREENING OUTSIDE REFERENCE Routine 10/30/2020 12:00 AM SWITCH ENGINEER documented in this encounter Results * Breast Imaging Screening Outside Reference (10/30/2020 12:00 AM SWITCH ENGINEER) Impressions [facility] - 01/19/2024 12:12 PM CDT These images are for Reference purposes only and have not been reviewed by [facility]. There will be no report generated by a [facility] Radiologist. Narrative [facility] - 01/19/2024 12:12 PM CDT EXAMINATION: Images For Reference Purposes Only us Provider Transcribed Order IMG MAMMO PROCEDURES Final Result [facility] documented in this encounter Visit Diagnoses Not on filedocumented in this encounter Care Teams International Organizer Relationship Specialty Start Date End Date Jorge Urias MD PCP - General 04/19/17 documented as of this encounter
--- OUTSIDE RECORDS SUMMARY | 2020-10-30 | XMS_ITS | Encounter Summary ---
Author Organization [facility] Healthcare Address [address] [place] [address] Care Team Providers Care President Name Role Phone Jorge Urias MD Primary Care Provider [phone] Reason for Visit * Diagnostic Imaging (Routine) - Closed Specialty Diagnoses / Procedures Referred By Alek patel Referred To Contact Procedures Breast Imaging Screening Outside Reference Transcribed Order, Provider Referral ID Status Reason Start Date Expiration Date Visits Re quested Visits Authorized [id number] Closed 01/19/2024 02/17/2025 1 1 Encounter Details Date Type Department Care Team (Late st Contact Info) Description 10/30/2020 Hospital Encounter [facility] [address] [place] [id number] Social History Tobacco Use Types Packs/Day Years [...] on file Legal Sex Female 7:05 AM DELIVERY DIRECTOR Gender Identity Female 07/13/2021 1:56 PM CDT Sexual Orientation Not on file documented as of this encounter Functional Status * BP Location Answer Date of Assessment Author Left arm 08/22/2023 4:04 PM DELIVERY DIRECTOR Yusuf Lino arra, WINDING INSPECTOR * Alcohol Withdrawal BP Hierarchy Answer Date of Assessment Author 74 08/23/2022 3:51 PM DELIVERY DIRECTOR Noa Sol CMA * Alcohol Use Question [...] Assessment Author Left arm 08/22/2023 4:04 PM DELIVERY DIRECTOR Yusuf Lino CMA documented as of this encounter Plan of Treatment Not on file documented as of this encounter Procedures Procedure Name Priority Date/Time Associated Diagnosis Comments BREAST IMAGING MG SCREENING OUTSIDE REFERENCE Routine 10/30/2020 12:00 AM DELIVERY DIRECTOR documented in this encounter Results * Breast Imaging Screening Outside Reference (10/30/2020 12:00 AM DELIVERY DIRECTOR) Impressions [facility] - 01/19/2024 12:12 PM CDT These images are for Reference purposes only and have not been reviewed by [facility]. There will be no report generated by a [facility] Radiologist. Narrative [facility] - 01/19/2024 12:12 PM CDT EXAMINATION: Images For Reference Purposes Only us Provider Transcribed Order IMG MAMMO PROCEDURES Final Result [facility] documented in this encounter Visit Diagnoses Not on filedocumented in this encounter Care Teams President Relationship Specialty Start Date End Date Jorge Urias MD PCP - General 04/19/17 documented as of this encounter
--- OUTSIDE RECORDS SUMMARY | 2020-10-30 | XMS_ITS | Encounter Summary ---
Author Organization [facility] Healthcare Address [address] [place] [address] Care Team Providers Care Application Security Architect Name Role Phone Jorge Urias MD Primary Care Provider [phone] Reason for Visit * Diagnostic Imaging (Routine) - Closed Specialty Diagnoses / Procedures Referred By Alek patel Referred To Contact Procedures Breast Imaging Screening Outside Reference Transcribed Order, Provider Referral ID Status Reason Start Date Expiration Date Visits Re quested Visits Authorized [id number] Closed 01/19/2024 02/17/2025 1 1 Encounter Details Date Type Department Care Team (Late st Contact Info) Description 10/30/[address] [facility] [address] [place] [id number] Social History Tobacco Use Types Packs/Day Years [...] on file Legal Sex Female 7:05 AM FUSE MAKER Gender Identity Female 07/13/2021 1:56 PM CDT Sexual Orientation Not on file documented as of this encounter Functional Status * BP Location Answer Date of Assessment Author Left arm 08/22/2023 4:04 PM FUSE MAKER Yusuf Lino arra, PERFORMANCE IMPROVEMENT ANALYST * Alcohol Withdrawal BP Hierarchy Answer Date of Assessment Author 76 08/23/2022 3:51 PM FUSE MAKER Noa Sol CMA * Alcohol Use Question [...] Assessment Author Left arm 08/22/2023 4:04 PM FUSE MAKER Yusuf Lino CMA documented as of this encounter Plan of Treatment Not on file documented as of this encounter Procedures Procedure Name Priority Date/Time Associated Diagnosis Comments BREAST IMAGING MG SCREENING OUTSIDE REFERENCE Routine 10/30/2020 12:00 AM FUSE MAKER documented in this encounter Results * Breast Imaging Screening Outside Reference (10/30/2020 12:00 AM FUSE MAKER) Impressions [facility] - 01/19/2024 12:12 PM CDT These images are for Reference purposes only and have not been reviewed by [facility]. There will be no report generated by a [facility] Radiologist. Narrative [facility] - 01/19/2024 12:12 PM CDT EXAMINATION: Images For Reference Purposes Only us Provider Transcribed Order IMG MAMMO PROCEDURES Final Result [facility] documented in this encounter Visit Diagnoses Not on filedocumented in this encounter Care Teams Application Security Architect Relationship Specialty Start Date End Date Jorge Urias MD PCP - General 04/19/17 documented as of this encounter
[2025-08-14] VITALS (9 sets, daily range): BP systolic 93–129; BP diastolic 56–91; PULSE 73–92; RESP 16–20; TEMP 36.3–36.9; O2SAT 93–100
--- OUTSIDE RECORDS SUMMARY | 2025-08-14 04:30 | XMS_ITS | Encounter Summary ---
Author Organization [employer] Address [address] [place] [address] Care Team Providers Care Host/Hostess Ground Name Role Phone Jorge Urias MD Primary Care Provider Encounter Details Date Type Department Care Team (Late st Contact Info) Description 12/02/2006 Outpatient Historical [facility] Jake King DO [address] [place] [address] Social History Tobacco Use Types Packs/Day Years Used Date Smoking Tobacco: Never Assessed Comments Unknown Sex and Gender Information Value Date Recorded Sex Assigned at Not on file Legal Sex Female 5:10 AM RETAIL HELPER Gender Identity Not on file Sexual Orientation Not on file documented as of this encounter Plan of Treatment Not on file documented as of this encounter Visit Diagnoses Not on filedocumented in this encounter Care Teams Host/Hostess Ground Relationship Specialty Start Date End Date Jorge Urias MD [address] [place] [address] PCP - General 12/03/09 documented as of this encounter
--- OUTSIDE RECORDS SUMMARY | 2025-08-14 04:30 | XMS_ITS | Encounter Summary ---
Author Organization [employer] Address [address] [place] [address] Care Team Providers Care Interior Specialist Name Role Phone Jorge Urias MD Primary Care Provider [phone] Encounter Details Date Type Department Care Team (Latest Contact Info) Description 09/14/2006 Outpatient Historical [facility] Elias Barr MD [address] [facility] [place] [address] Malignant Neoplasm of Thyroid Gland (CMS/HCC) (Primary Dx) Social History Tobacco Use Types Packs/Day Years Used Date Smoking Tobacco: Never Assessed Comments Unknown Sex and Gender Information Value Date Recorded Sex Assigned at Not on file Legal Sex Female 5:10 AM LEAD AUDITOR Gender Identity Not on file Sexual Orientation Not on file documented as of this encounter Plan of Treatment Not on file documented as of this encounter Procedures Procedure Name Priority Date/Time Associated Diagnosis Comments CALCIUM LEVEL Routine 09/14/2006 9:59 AM LEAD AUDITOR documented in this encounter Results * CALCIUM LEVEL (09/14/2006 9:59 AM LEAD AUDITOR) CALCIUM 9.5 8.4 - 10.2 mg/dL INTERFACE SYSTEM 09/14/2006 9:59 AM LEAD AUDITOR us Elias Barr MD CHEMISTRY ORDERABLES Edited INTERFACE SYSTEM Refer to clinic/hospital department documented in this encounter Visit Diagnoses Diagnosis Malignant neoplasm of thyroid gland (CMS/HCC)- Primary Malignant neoplasm of thyroid gland documented in this encounter Care Teams Interior Specialist Relationship Specialty Start Date End Date Jorge Urias MD [address] [place] [address] PCP - General 12/03/09 documented as of this encounter
--- OUTSIDE RECORDS SUMMARY | 2025-08-14 04:30 | XMS_ITS | Encounter Summary ---
Author Organization [employer] Address [address] [place] [address] Care Team Providers Care Senior Structural Engineer Name Role Phone Jorge Urias MD Primary Care Provider Encounter Details Date Type Department Care Team (Late st Contact Info) Description 10/31/2006 Outpatient Historical [facility] Jake King DO [address] [place] [address] Follow-Up Examination, Following Other Surgery (Primary Dx) Social History Tobacco Use Types Packs/Day Years Used Date Smoking Tobacco: Never Assessed Comments Unknown Sex and Gender Information Value Date Recorded Sex Assigned at Not on file Legal Sex Female 5:10 AM RIP/MOULD OPERATOR Gender Identity Not on file Sexual Orientation Not on file documented as of this encounter Plan of Treatment Not on file documented as of this encounter Visit Diagnoses Diagnosis Follow-up examination, following other surgery- Primary documented in this encounter Care Teams Senior Structural Engineer Relationship Specialty Start Date End Date Jorge Urias MD [address] [place] [phone] PCP - General 12/03/09 documented as of this encounter
--- OUTSIDE RECORDS SUMMARY | 2025-08-14 04:30 | XMS_ITS | Clinical Summary ---
Author Organization [facility] Address [address] [place] [address] Phone Care Team Providers Care Offset Proof Press Operator Name Role Phone Jorge Urias MD Primary Care Provider [phone] Allergies Active Allergy Reactions Criticality Noted Date Comments Attapulgite Rash Medium 11/17/2009 Rqgxp-Jfodmymd-Vam-Turp-Pet Rash Medium 11/18/19 10 Medications levothyroxine (SYNTHROID) 112 mcg Oral tablet Take 112 mcg by mouth daily. Active metoclopramide (REGLAN) 5 mg Oral tablet Take 5 mg by mouth 4 times daily before meals and at bedtime. Active hydrocodone-acet aminophen (VICODIN ES) 7.5-750 mg Oral Tab Take 1 Tab by mouth every 4 hours as needed. Active Social History Tobacco Use Types Packs/Day Years Used Date Smoking Tobacco: Never Comments Unknown Sex and Gender Information Value Date Recorded Sex Assigned at Not on file Legal Sex Female 5:10 AM ASSOCIATE FINANCIAL ADVISOR Gender Identity Not on file Sexual Orientation Not on file Last Filed Vital Signs Vital Sign Reading Time Taken Comments Blood Pressure 99/65 11/20/2009 5:40 PM ASSOCIATE FINANCIAL ADVISOR Pulse 76 11/20/2009 5:40 PM ASSOCIATE FINANCIAL ADVISOR Temperature 36.4 C (97.6 F) 11/20/2009 5:40 PM ASSOCIATE FINANCIAL ADVISOR Respiratory Rate 16 11/20/2009 5:40 PM ASSOCIATE FINANCIAL ADVISOR Oxygen Saturation 99% 11/20/2009 5:40 PM ASSOCIATE FINANCIAL ADVISOR Inhaled Oxygen Concentration - - Weight 54.4 kg (120 lb) 12/03/2009 9:53 AM CDT Height 170.2 cm (5' 7) 11/20/2009 12:16 PM ASSOCIATE FINANCIAL ADVISOR Body Mass Index 18.79 11/20/2009 12:16 PM ASSOCIATE FINANCIAL ADVISOR Plan of Treatment Health Maintenance Due Date Last Done Comments DTAP/TDAP/TD VACCINES (1 - Tdap) 1992 HEPATITIS B VACCINES (1 of 3 - 19+ 3-dose series) 09/12 HPV/Cotest (21-29) 1994 CERVICAL CANCER SCREENING 2003 HPV/Cotest (30-65) 2003 PAP SMEAR 2003 BREAST CANCER SCREENING 2013 COLORECTAL SCREENING 2018 Colorectal Cancer Screening 2018 FIT-DNA Q 3 years 2018 FIT/FOBT Q 1 year 2018 Flex Sig/CT Colonography Q 5 years 2018 ZOSTER VACCINE (1 of 2) 2023 INFLUENZA VACCINE (#1) 2025 Insurance [facility] BLUE Tern/TRUE BLUE PPO Advance Directives For more information, please contact: [phone] * Full Code (Latest Code Status on File) Date Activated Date Inactivated Comments 11/20/2009 2:22 PM 11/21/2009 2:01 AM * Full Code Date Activated Date Inactivated Comments 11/20/2009 12:10 PM 11/20/2009 2:22 PM Care Teams Offset Proof Press Operator Relationship Specialty Start Date End Date Jorge Urias MD [address] [place] [address] [facility] - General 12/03/09
--- OUTSIDE RECORDS SUMMARY | 2025-08-14 04:30 | XMS_ITS | Encounter Summary ---
Author Organization [facility] Address [address] [place] [address] Care Team Providers Care Social Work Coordinator Name Role Phone Jorge Urias MD Primary Care Provider [phone] Encounter Details Date Type Department Care Team (Late st Contact Info) Description 04/07/2020 Prep for Procedure [facility] [address] [place] [id number] [place] [address] [facility] [address] [place] [address] Social History Tobacco Use Types Packs/Day Years Used Date Smoking Tobacco: Never Smokeless Tobacco: Never Alcohol Use Standard Drinks/Week Comments Yes 0 (1 standard drink = 0.6 oz pur e alcohol) SOCIALLY Social Connection and Isolation Panel Answer Date Recorded Frequency of Communication w ith Friends and Family More than three times a week 04/07/2020 Frequency of Social Gatherin gs with Friends and Family Not on file 04/07/2020 Attends Buddhism Services Not on file 04/07 Active Member of Clubs or Organizations Not on f ile 04/07/2020 Attends Club or Organization Meetings Not on ayala e 04/07/2020 Marital Status Not on file 04/07/2020 Overall Financial Resource Strain (CARDIA) Answe r Date Recorded Difficulty of Paying Living Expenses Not hard at all 04/07/2020 [facility] [place] [facility] Occupat ional [facility] - Occupational Stress Questionnaire Answer Date Recorded Feeling of Stress Not at all 04/07/2020 Exercise Vital Sign Answer Date Recorde d Days of Exercise per Week 5 days 2019 Minutes of Exercise per Session 40 min 04/07/2020 Hunger Vital Sign Answer Date Recorded Worried About Running Out of Food in the Last Ye ar Never true 04/07/2020 Ran Out of Food in the Last Year Never true 04/07/2020 PRAPARE - Transportation Answer Date Re corded Lack of Transportation (Medical) No 04/07/2020 Lack of Transportation (Non-Medical) No 04/07/2020 Comments No Sex and Gender Information Value Date Recorded Sex Assigned at Female 07/01/2021 1:36 PM CDT Legal Sex Female 9:23 PM CDT Gender Identity Female 07/01/2021 1:36 PM CDT Sexual Orientation Straight 07/01/2021 1: 36 PM CDT documented as of this encounter Plan of Treatment Not on file documented as of this encounter Results * PRE-SURGICAL/PRE-PROCEDURE CORONAVIRUS (COVID 19) (04/11/2020 8:10 AM CDT) CORONAVIRUS SARS COV 2 PCR (RESP) NOT DETECTED NOT DETECTED 04/13/2020 12:12 AM CDT [facility] Comment: A Not Detected (negative) test result for this test means that SARS- CoV-2 RNA was not present in the specimen above the limit of detection. A negative result does not rule out the possibility of COVID-19 and should not be used as the sole basis for treatment or patient management decisions. If COVID-19 is still suspected, based on exposure history together with other clinical findings, re-testing should be considered in consultation with public health authorities. Laboratory test results should always be considered in the context of clinical observations and epidemiological data in making a final diagnosis and patient management decisions. Please review the Fact Sheets and FDA authorized labeling available for health care providers and patients using the following websites: https://www.Within[employer].com/home/Covid-19/HCP/Quest[employer]/fact- sheet.html https://www.[employer]/home/Covid-19/Patients/ Quest[employer]D/fact-sheet.html This test has been authorized by the FDA under an Emergency Use Authorization (EUA) for use by authorized laboratories. Due to the current public health emergency, [facility] is receiving a high volume of samples from a wide variety of swabs and media for COVID-19 testing. In order to serve patients during this public health crisis, samples from appropriate clinical sources are being tested. Negative test results derived from specimens received in non-commercially manufactured viral collection and transport media, or in media and sample collection kits not yet authorized by FDA for COVID-19 testing should be cautiously evaluated and the patient potentially subjected to extra precautions such as additional clinical monitoring, including collection of an additional specimen. Methodology: Nucleic Acid Amplification Test (NAAT) includes PCR or TMA Additional information about COVID-19 can be found at the [facility] website: www.Flickr/Covid19. Test performed at [facility] [id number] [place] [address] Director: LESLIE LIN DO,MPH NASOPHARYNGEAL SWAB / Unknown 04/11/2020 8:10 AM CDT us Ruslan Bray MD MICROBIOLOGY - GENERAL ORDERABLES Final Result [facility] [id number] [place] [id number] documented in this encounter Visit Diagnoses Diagnosis Pre-op testing- Primary Preoperative examination, unspecified documented in this encounter Additional Health Concerns Infection Onset Date Last Indicated Resolved Time COVID-19 Rule Out 04/11/2020 04/11/2020 04/13/2020 12:12 AM CDT documented as of this encounter Care Teams Social Work Coordinator Relationship Specialty Start Date End Date Jroge Urias MD [address] [place] [address] PCP - General FAMILY PRACTICE 01/15/20 documented as of this encounter
--- OUTSIDE RECORDS SUMMARY | 2025-08-14 04:30 | XMS_ITS | Encounter Summary ---
Author Organization [employer] Address [address] [place] [address] Care Team Providers Care Chief Supply Chain Officer Name Role Phone Jorge Urias MD Primary Care Provider Encounter Details Date Type Department Care Team (Latest Contact Info) Description 11/11/2007 Outpatient Historical [facility] Maksim Coronado MD [address] [address] Malignant Neoplasm of Thyroid Gland (CMS/HCC) Social History Tobacco Use Types Packs/Day Years Used Date Smoking Tobacco: Never Assessed Comments Unknown Sex and Gender Information Value Date Recorded Sex Assigned at Not on file Legal Sex Female 5:10 AM CHIP MACHINE OPERATOR Gender Identity Not on file Sexual Orientation Not on file documented as of this encounter Plan of Treatment Not on file documented as of this encounter Visit Diagnoses Diagnosis Malignant neoplasm of thyroid gland (CMS/HCC) Malignant neoplasm of thyroid gland documented in this encounter Care Teams Chief Supply Chain Officer Relationship Specialty Start Date End Date Jorge Urias MD [address] [place] [address] PCP - General 12/03/09 documented as of this encounter
--- OUTSIDE RECORDS SUMMARY | 2025-08-14 04:30 | XMS_ITS | Encounter Summary ---
Author Organization [employer] Address [address] [place] [address] Care Team Providers Care Behavioral Services Tech Name Role Phone Jorge Urias MD Primary Care Provider [phone] Encounter Details Date Type Department Care Team (Latest Contact Info) Description 10/02/2006 Outpatient Historical [facility] Elias Barr MD [address] [facility] [address] [place] [address] Malignant Neoplasm of Thyroid Gland (CMS/HCC) (Primary Dx) Social History Tobacco Use Types Packs/Day Years Used Date Smoking Tobacco: Never Assessed Comments Unknown Sex and Gender Information Value Date Recorded Sex Assigned at Not on file Legal Sex Female 5:10 AM VACUUM FRAME OPERATOR Gender Identity Not on file Sexual Orientation Not on file documented as of this encounter Plan of Treatment Not on file documented as of this encounter Visit Diagnoses Diagnosis Malignant neoplasm of thyroid gland (CMS/HCC)- Primary Malignant neoplasm of thyroid gland documented in this encounter Care Teams Behavioral Services Tech Relationship Specialty Start Date End Date Jorge Urias MD [address] [place] [address] PCP - General 12/03/09 documented as of this encounter
--- OUTSIDE RECORDS SUMMARY | 2025-08-14 04:30 | XMS_ITS | Encounter Summary ---
Author Organization [employer] Address [address] [place] [address] Care Team Providers Care Geographic Information System Surveyor Name Role Phone Jorge Urias MD Primary Care Provider [phone] Encounter Details Date Type Department Care Team (Late st Contact Info) Description 10/18/2006 Outpatient Historical [facility] Jake King DO [address] [place] [address] Social History Tobacco Use Types Packs/Day Years Used Date Smoking Tobacco: Never Assessed Comments Unknown Sex and Gender Information Value Date Recorded Sex Assigned at Not on file Legal Sex Female 5:10 AM POLE SANDER OPERATOR Gender Identity Not on file Sexual Orientation Not on file documented as of this encounter Plan of Treatment Not on file documented as of this encounter Visit Diagnoses Not on filedocumented in this encounter Care Teams Geographic Information System Surveyor Relationship Specialty Start Date End Date Jorge Urias MD [address] [place] [address] PCP - General 12/03/09 documented as of this encounter
--- OUTSIDE RECORDS SUMMARY | 2025-08-14 04:30 | XMS_ITS | Encounter Summary ---
Author Organization [facility] Address [address] [place] [address] Care Team Providers Care News Producer Name Role Phone Jorge Urias MD Primary Care Provider [phone] Encounter Details Date Type Department Care Team (Latest Contact Info) Description 10/10/2007 Outpatient Historical [facility] Maksim Molina MD [address] [place] [address] [address] [place] [address] Malignant Neoplasm of Thyroid Gland (CMS/HCC) Social History Tobacco Use Types Packs/Day Years Used Date Smoking Tobacco: Never Assessed Comments Unknown Sex and Gender Information Value Date Recorded Sex Assigned at Not on file Legal Sex Female 5:10 AM TABLE GAMES DUAL RATE SUPERVISOR Gender Identity Not on file Sexual Orientation Not on file documented as of this encounter Plan of Treatment Not on file documented as of this encounter Procedures Procedure Name Priority Date/Time Associated Diagnosis Comments NM THYROID CA METS WHOLE BODY Routine 10/10/2007 2:10 PM TABLE GAMES DUAL RATE SUPERVISOR documented in this encounter Results * NM THYROID CA METS WHOLE BODY (10/10/2007 2:10 PM TABLE GAMES DUAL RATE SUPERVISOR) Anatomical Region Laterality Modality Neck Other 10/10/2007 2:10 PM TABLE GAMES DUAL RATE SUPERVISOR Narrative 10/12/2007 10:03 AM TABLE GAMES DUAL RATE SUPERVISOR [address] [address] Admit Date: 10/10/2007 LINH QUIROS Sex: F Admit Prov: MAKSIM MOLINA Date: 1975 Primary Care Prov: CMRN: [id number] [id number] IM[facility] Ordering Prov: N/A Accession Number: [id number] Interpretation I-131 whole-body scan for metastatic thyroid cancer. History: 32-year-old female with 100 mCi ablation of thyroid cancer September,. Currently asymptomatic. Procedure: 4.1 mCi I-131 sodium iodide with whole-body imaging performed at 48 hours after the administration of 2 doses of 0.9 mg intramuscular thyrogen. Findings: Whole-body and spot images of the neck are negative for residual thyroid cancer. Impression: Negative I-131 whole-body scan with no findings to suggest residual thyroid cancer or residual normal thyroid tissue. . Dictated by: VERA RAY 10/12/2007 10:02 Electronically signed by: VERA RAY 10/12/2007 10:03 Procedure Note Vera Ray 10/12/2007 [address] [place], [place] [address] Admit Date: 10/10/2007 BLACK, LINH Sex: F Admit Prov: MAKSIM MOLINA Date: 1975 Primary Care Prov: CMRN: [id number] [facility] [id number] IMAGING SERVICES Ordering Prov: N/A Interpretation I-131 whole-body scan for metastatic thyroid cancer. History: 32-year-old female with 100 mCi ablation of thyroid cancer September,. Currently asymptomatic. Procedure: 4.1 mCi I-131 sodium iodide with whole-body imagingperformed at 48 hours after the administration of 2 doses of 0.9 mgintramuscular thyrogen. Findings: Whole-body and spot images of the neck are negative forresidual thyroid cancer. Impression: Negative I-131 whole-body scan with no findings tosuggest residual thyroid cancer or residual normal thyroid tissue. . Dictated by: VERA RAY 10/12/2007 10:02 Electronically signed by: VERA RAY 10/12/2007 10:03 Maksim Molina MD NM ORDERABLES Final Resul t documented in this encounter Visit Diagnoses Diagnosis Malignant neoplasm of thyroid gland (CMS/HCC) Malignant neoplasm of thyroid gland documented in this encounter Care Teams News Producer Relationship Specialty Start Date End Date Jorge Urias MD [address] [place] [address] PCP - General 12/03/09 documented as of this encounter
--- OUTSIDE RECORDS SUMMARY | 2025-08-14 04:30 | XMS_ITS | Patient Health Record ---
Author Organization [employer] Address [address] [facility]. [address] [place] [address] Care Team Providers Care Furniture Sander Name Role Phone Bridgett LOVETT, Jorge Primary Care Provider Unavaila ble Reason For Referral No Information Plan Of Treatment No Information Insurance Providers Payer Name Payer Address Payer Phone Subscriber Number Group Number Insured Name Patient Relationship to Insured Coverage Start Date Coverage End Date Blue Access Choice PPO E2 [address] [place] [address] [id number] Ree May Self - patient is the insured
--- OUTSIDE RECORDS SUMMARY | 2025-08-14 04:30 | XMS_ITS | Encounter Summary ---
Author Organization [facility] Address [address] [place] [address] Care Team Providers Care Soil Tester Name Role Phone Jorge Urias MD Primary Care Provider [phone] Encounter Details Date Type Department Care Team (Latest Contact Info) Description 09/08/2006 Outpatient Historical [facility] Elias Barr MD [address] [place] [address] Malignant Neoplasm of Thyroid Gland (CMS/HCC) (Primary Dx) Social History Tobacco Use Types Packs/Day Years Used Date Smoking Tobacco: Never Assessed Comments Unknown Sex and Gender Information Value Date Recorded Sex Assigned at Not on file Legal Sex Female 5:10 AM DIRECTOR OF SERVICES Gender Identity Not on file Sexual Orientation Not on file documented as of this encounter Plan of Treatment Not on file documented as of this encounter Procedures Procedure Name Priority Date/Time Associated Diagnosis Comments CALCIUM LEVEL Routine 09/09/2006 12:15 PM DIRECTOR OF SERVICES CALCIUM LEVEL Routine 09/09/2006 5:00 AM DIRECTOR OF SERVICES CALCIUM LEVEL Routine 09/08/2006 9:20 PM DIRECTOR OF SERVICES CALCIUM LEVEL Routine 09/08/2006 6:41 PM DIRECTOR OF SERVICES POC , URINE Routine 09/08/2006 12:30 PM DIRECTOR OF SERVICES HEMOGLOBIN AND HEMATOCRIT Routine 09/08/2006 12:17 PM DIRECTOR OF SERVICES documented in this encounter Results * CALCIUM LEVEL (09/09/2006 12:15 PM DIRECTOR OF SERVICES) CALCIUM 8.5 8.4 - 10.2 mg/dL INTERFACE SYSTEM 09/09/2006 12:1 5 PM DIRECTOR OF SERVICES us Elias Barr MD CHEMISTRY ORDERABLES Final Resul t Performing Organization Address [facility] Phone Number INTERFACE SYSTEM Refer to clinic/hospital department * (ABNORMAL) CALCIUM LEVEL (09/09/2006 5:00 AM DIRECTOR OF SERVICES) CALCIUM 7.8(L) 8.4 - 10.2 mg/dL INTERFACE SYSTEM 09/09/2006 5:00 AM DIRECTOR OF SERVICES us Elias Barr MD CHEMISTRY ORDERABLES Final Resul t Performing Organization Address [facility] Phone Number INTERFACE SYSTEM Refer to clinic/hospital department * (ABNORMAL) CALCIUM LEVEL (09/08/2006 9:20 PM DIRECTOR OF SERVICES) CALCIUM 8.2(L) 8.4 - 10.2 mg/dL INTERFACE SYSTEM 09/08/2006 9:20 PM DIRECTOR OF SERVICES us Elias Barr MD CHEMISTRY ORDERABLES Final Resul t Performing Organization Address [facility] Phone Number INTERFACE SYSTEM Refer to clinic/hospital department * CALCIUM LEVEL (09/08/2006 6:41 PM DIRECTOR OF SERVICES) CALCIUM 8.6 8.4 - 10.2 mg/dL INTERFACE SYSTEM 09/08/2006 6:41 PM DIRECTOR OF SERVICES us Elias Barr MD CHEMISTRY ORDERABLES Final Resul t Performing Organization Address [facility] Phone Number INTERFACE SYSTEM Refer to clinic/hospital department * POC , URINE (09/08/2006 12:30 PM DIRECTOR OF SERVICES) , URINE POC Negative Negative INTERFACE SYSTEM 09/08/2006 12:3 0 PM DIRECTOR OF SERVICES us Elias Barr MD POINT OF CARE TESTING Final Resu lt INTERFACE SYSTEM Refer to clinic/hospital department * HEMOGLOBIN AND HEMATOCRIT (09/08/2006 12:17 PM DIRECTOR OF SERVICES) HEMOGLOBIN 14.4 11.8 - 14.8 g/dL INTERFACE SYSTEM HEMATOCRIT 41.2 35.5 - 44.0 % INTERFACE SYSTEM 09/08/2006 12:1 7 PM DIRECTOR OF SERVICES us Elias Barr MD HEMATOLOGY ORDERABLES Final Resu lt Performing Organization Address City/[facility] Co de Phone Number INTERFACE SYSTEM Refer to clinic/hospital department documented in this encounter Visit Diagnoses Diagnosis Malignant neoplasm of thyroid gland (CMS/HCC)- Primary Malignant neoplasm of thyroid gland documented in this encounter Care Teams Soil Tester Relationship Specialty Start Date End Date Jorge Urias MD [address] [place] [phone] PCP - General 12/03/09 documented as of this encounter
--- OUTSIDE RECORDS SUMMARY | 2025-08-14 04:30 | XMS_ITS | Encounter Summary ---
Author Organization [facility] Address [address] [place] [address] Care Team Providers Care Tablet Machine Operator Name Role Phone Jorge Urias MD Primary Care Provider [phone] Encounter Details Date Type Department Care Team (Latest Contact Info) Description 10/12/2007 Outpatient Historical [facility] Maksim Choudhury MD [address] [place] [phone] Nontoxic Multinodular Goiter Social History Tobacco Use Types Packs/Day Years Used Date Smoking Tobacco: Never Assessed Comments Unknown Sex and Gender Information Value Date Recorded Sex Assigned at Not on file Legal Sex Female 5:10 AM PIPE ROLLER Gender Identity Not on file Sexual Orientation Not on file documented as of this encounter Plan of Treatment Not on file documented as of this encounter Procedures Procedure Name Priority Date/Time Associated Diagnosis Comments THYROGLOBULIN, TUMOR MARKER Routine 10/12/2007 9:30 AM PIPE ROLLER TSH Routine 10/12/2007 9:30 AM PIPE ROLLER documented in this encounter Results * (ABNORMAL) THYROGLOBULIN (10/12/2007 9:30 AM PIPE ROLLER) THYROGLOBULIN AB <20 <20 IU/mL INT ERFACE SYSTEM THYROGLOBULIN <0.2(L) 2.0 - 35.0 ng/mL INTERFACE SYSTEM Comment: Additional information: Crm System Administrator: DPC Methodology: FORTINO When monitoring patients over time, Tg values obtained with different methods cannot be used interchangeably due to the differences in method and reagent specifications. Lab test performed by: [facility] [id number] [place], [place] CHARISSA SAM MD 10/12/2007 9:30 AM PIPE ROLLER us Maksim Coronado MD CHEMISTRY ORDERABLES Final Result Performing Organization Address City/[facility] de Phone Number INTERFACE SYSTEM Refer to clinic/hospital department * (ABNORMAL) TSH (10/12/2007 9:30 AM PIPE ROLLER) TSH 16.44(H) 0.27 - 4.20 uU/mL INTERFACE SYSTEM 10/12/2007 9:30 AM PIPE ROLLER us Maksim Coronado MD CHEMISTRY ORDERABLES Final Result Performing Organization Address City/[facility] Phone Number INTERFACE SYSTEM Refer to clinic/hospital department documented in this encounter Visit Diagnoses Diagnosis Nontoxic multinodular goiter documented in this encounter Care Teams Tablet Machine Operator Relationship Specialty Start Date End Date Jorge Urias MD [address] [place] [address] PCP - General 12/03/09 documented as of this encounter
--- OUTSIDE RECORDS SUMMARY | 2025-08-14 04:30 | XMS_ITS | Encounter Summary ---
Author Organization [facility] Address [address] [place] [address] Care Team Providers Care Stave Mill Hand Name Role Phone Jorge Urias MD Primary Care Provider [phone] Encounter Details Date Type Department Care Team (Late st Contact Info) Description 09/08/2006 Outpatient Historical [facility] [address] 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 [phone] PCP - General 12/03/09 documented as of this encounter
--- OUTSIDE RECORDS SUMMARY | 2025-08-14 04:31 | XMS_ITS | Encounter Summary ---
Author Organization [employer] Address 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) Social History Tobacco Use Types Packs/Day Years Used Date Smoking Tobacco: Never Assessed Comments Unknown Sex and Gender Information Value Date Recorded Sex Assigned at Not on file Legal Sex Female 5:10 AM GEAR AND SPLINE GRINDER Gender Identity Not on file Sexual Orientation Not on file documented as of this encounter Plan of Treatment Not on file documented as of this encounter Visit Diagnoses Diagnosis Malignant neoplasm of thyroid gland (CMS/HCC)- Primary Malignant neoplasm of thyroid gland documented in this encounter Care Teams Director Process Engineering Relationship Specialty Start Date End Date Jorge Urias MD [address] [place] [address] PCP - General 12/03/09 documented as of this encounter
--- OUTSIDE RECORDS SUMMARY | 2025-08-14 04:31 | XMS_ITS | Encounter Summary ---
Author Organization [employer] Address [address] [place] [address] Care Team Providers Care Material Specialist Name Role Phone Jorge Urias MD Primary Care Provider Encounter Details Date Type Department Care Team (Late st Contact Info) Description 08/25/2006 Outpatient Historical [facility] [address] Maksim Coronado MD [address] [place] [phone] Social History Tobacco Use Types Packs/Day Years Used Date Smoking Tobacco: Never Assessed Comments Unknown Sex and Gender Information Value Date Recorded Sex Assigned at Not on file Legal Sex Female 5:10 AM MAINTENANCE AND UTILITIES SUPERVISOR Gender Identity Not on file Sexual Orientation Not on file documented as of this encounter Plan of Treatment Not on file documented as of this encounter Visit Diagnoses Not on filedocumented in this encounter Care Teams Material Specialist Relationship Specialty Start Date End Date Jorge Urias MD [address] [place] [address] PCP - General 12/03/09 documented as of this encounter
--- OUTSIDE RECORDS SUMMARY | 2025-08-14 04:31 | XMS_ITS | Clinical Summary ---
Author Organization [facility] Address [address] [place] [address] Care Team Providers Care Brake Operator Heavy Duty Name Role Phone Jorge Urias MD Primary Care Provider [phone] Elgin Ford MD Unavailable Allergies Active Allergy Reactions Criticality Noted Date Comments Attapulgite Rash Medium 11/17/2009 Rbboc-Cgtyxghd-Sti-Turp-Pet Rash Medium 11/18/19 10 Fentanyl Nausea & Vomiting Low 03/22/2024 Medications fluticasone propionate (FLOVENT HFA) 220 mcg/actuation inhaler Inhale as needed 0 Active zinc gluconate 50 mg tablet Take 1 tablet (50 mg total) by mouth daily Only in the winter Active cholecalciferol (VITAMIN D-3) 2000 unit tablet Take 50 mcg by mouth daily Only in the winter Active ascorbic acid (VITAMIN C) 1,000 mg tablet Take 1 tablet (1,000 mg total) by mouth daily Only in the winter Active docosahexaenoic acid/epa (FISH OIL ORAL) Take by mouth Once daily Active multivit-min/gil us fumarate (MULTI VITAMIN ORAL) Take by mouth Anayeli Quercetin Once daily Active [place] Thyroid 90 mg tabletIndications: Postoperative hypothyroidism TAKE 1 TABLET EVERY MORNING 90 tablet 3 5 Active levothyroxine (SYNTHROID) 25 mcg tabletIndications: Postoperative hypothyroidism TAKE 1 TABLET DAILY 90 tablet 3 5 Active progesterone (PROMETRIUM) 100 mg capsuleIndications :Menopausal symptoms Take 1 capsule (100 mg total) by mouth daily 90 capsule 1 5 Active estradioL (CLIMARA) 0.05 mg/24 hrIndications:Elzbieta pausal symptoms APPLY 1 PATCH TOPICALLY ONCE A WEEK 12 patch 1 5 Active Active Problems Problem Noted Date Diagnosed Date Menopausal symptoms 05/08/2019 Assessment & Plan (05/08/2019 1:44 PM CDT): Will check estradiol/FSH. If c/w menopause, she will consider HRT. Malignant neoplasm of thyroid gland 11/02/2011 Overview (05/02/2018): TTX and THOMPSON in 2006 with repeat WB scans that have been negative x 2. Her initial pathology showed multifocal disease with largest tumor 1.5 cm and extracapsular extension (T1N0Mx). Assessment & Plan (05/08/2019 1:45 PM CDT): Risk of recurrence is relatively low given her initial path and WBI scans that have been negative. No pathologic lymph nodes or nodules were noted on surveillance ultrasound in 2013. Assessment & Plan (05/02/2018 10:54 AM CDT): Risk of recurrence is relatively low given her initial path and WBI scans that have been negative. No pathologic lymph nodes or nodules were noted on surveillance ultrasound in 2013. Thyroid activity decreased 11/02/2011 Assessment & Plan (05/08/2019 1:45 PM CDT): Continue [place] Thyroid 90 mg daily. Goal is TSH 0.5 - 2, given excellent prognosis. Assessment & Plan (05/02/2018 10:55 AM CDT): Continue [place] Thyroid 90 mg daily. Goal is TSH 0.5 - 2, given excellent prognosis. 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 Capsular extension present. No comment of vascular invasion. 0/5 LN. (Added by Conv) Heart disease Mitro valve Family History Medical History Relation Name Comments Heart disease Father Family history of cardiac disorder - (Added by Conv) Hypertension Father Family history of hypertension - (Added by TW Conv) Thyroid disease Father Family histo ry of thyroid problem - (Added by TW Conv) Lung cancer Maternal Grandfather Lung cancer Maternal Grandmother Stroke Other 1 Family history of cerebral infarction - Relation: Grandmother (Added by TW Conv) Cancer Other 2 Family history of malignant neoplasm - Relation: Grandparent (Added by Conv) Colon cancer Paternal Grandfather Relation Name Status Comments Father Maternal Grandfather Maternal Grandmother Other 1 Other 2 Paternal Grandfather Social History Tobacco Use Types Packs/Day Years Used Date Smoking Tobacco: Never Passive Smoke Exposure: Never Smokeless Tobacco: Never Tobacco Cessation:Counseling Given: Not Answered AUDIT-C Answer Date Recorded Q1: How often [...] on file Legal Sex Female 7:05 AM FINGER BUFF SEWER Gender Identity Female 07/13/2021 1:56 PM CDT Sexual Orientation Not on file Obstetrics History Para Term AB IAB SAB Ectopic Multiple Livin g Live Births 1 Date Outcome GA Total Labor Labor/2nd/3rd Weight Sex Type Anes PTL Kemi A1 A5 Name Clin Last Filed Vital Signs Vital Sign Reading Time Taken Comments Blood Pressure 115/74 08/22/2023 4:04 PM FINGER BUFF SEWER Pulse 75 08/22/2023 4:04 PM FINGER BUFF SEWER Temperature 36.4 C (97.5 F) 08/22/2023 4:04 PM FINGER BUFF SEWER Respiratory Rate - - Oxygen Saturation - - Inhaled Oxygen Concentration - - Weight 63.8 kg (140 lb 9.6 oz) 04/02/2025 9:04 A M CDT Height 170.2 cm (5' 7.01) 04/02/2025 9:04 AM CD T Body Mass Index 22.01 04/02/2025 9:04 AM CDT Plan of Treatment Health Maintenance Due Date Last Done Comments Cervical Cancer Screening 1973 Colon Cancer Screening-Colonoscopy 1973 Depression Screening 1973 Hepatitis C Screening 1973 DTaP/Tdap/Td Vaccine (1 - Tdap) 1984 Hepatitis B Screening 1991 Regular Well Visit/Exam 18-64 1991 Zoster Vaccine (1 of 2) 2023 Influenza Vaccine (#1) 2025 Breast Cancer Screening-Mammogram 04/02/2026 04/02/2025, 03/22/2024 Pneumococcal vaccine <65 Aged Out No longer eligible based on patient's age to complete this topic Procedures Procedure Name Priority Date/Time Associated Diagnosis Comments DIAGNOSTIC MAMMOGRAM BILATERAL W DERIC W IMPLANTS Schedule Routine, Read Routine (OP Routine) 04/02/2025 10:06 AM CDT Follow-up exam, more than 1 year since previous exam from Last 3 Months or Most Recently Relevant to Health Maintenance Results * Diagnostic Mammogram Bilateral W Deric W Implants (04/02/2025 10:06 AM CDT) Anatomical Region Laterality Modality Breast Bilateral Mammography 04/02/2025 10:5 9 AM CDT Impressions 04/02/2025 12:03 PM CDT 1. Two circumscribed left breast masses which demonstrate 2 years of stability and are therefore considered benign. 2. No mammographic evidence of malignancy in EITHER breast. OVERALL FINAL ASSESSMENT: BI-RADS Category 2: Benign. RECOMMENDATION: Annual screening mammography is recommended. Dictated by: Loki Keyes M.D. The radiology attending physician has personally reviewed this study, and had reviewed and/or edited this written report and agrees with it. Electronically signed by: Jamal Hinds MD Narrative 04/02/2025 12:03 PM CDT EXAMINATION: BILATERAL DIGITAL DIAGNOSTIC MAMMOGRAM INCLUDING CAD AND BILATERAL DIGITAL BREAST TOMOSYNTHESIS; LEFT BREAST SONOGRAM HISTORY: 49-year-old woman with 2 probably benign left breast masses. COMPARISON: Mammograms dated 04/02/2025, 03/22/2024, 06/15/2023, 12/27/2022. Ultrasound dated 12/27/2022, 06/15/2023, and 03/22/2024. TECHNIQUE: Full field digital mammographic views of BOTH breasts were performed, including computer aided detection (CAD) and BILATERAL digital breast tomosynthesis (DBT). Directed ultrasound evaluation of the LEFT breast was performed. BREAST PARENCHYMAL COMPOSITION: The breasts are heterogeneously dense, which may obscure small masses. MAMMOGRAM FINDINGS: Bilateral saline implants are noted. No suspicious mass, distortion, or calcification within EITHER breast. SONOGRAM FINDINGS: Targeted sonographic ultrasound of the left breast at the 12 o'clock position, 3 cm from the nipple demonstrates unchanged appearance of a hypoechoic circumscribed parallel mass measuring 4 x 3 x 4 mm. Targeted sonographic ultrasound of the left breast at the 1 o'clock position, 8 cm from the nipple demonstrates unchanged appearance of an oval circumscribed hypoechoic mass measuring 5 x 5 x 2 mm Krysta PEREZ IMG MAMMO PROCEDURES Final Resu lt from Last 3 Months or Most Recently Relevant to Health Maintenance Insurance [facility]US [facility] HMO/PPO Address: [address] [address] [facility] CHOICE PLUS [facility] HMO/PPO Address: [facility] [id number] [place] [address] Care Teams Brake Operator Heavy Duty Relationship Specialty Start Date End Date Jorge Urias MD PCP - General 04/19/17 Elgin Ford MD [address] [place] [address] Referring Physician Obstetrics and Gynecology 01/05/24
--- OUTSIDE RECORDS SUMMARY | 2025-08-14 05:10 | XMS_ITS | Encounter Summary ---
Author Organization [facility] Address [address] [place] [address] Care Team Providers Care Technical Account Manager Name Role Phone Jorge Urias MD Primary Care Provider [phone] Encounter Details Date Type Department Care Team (Latest Contact Info) Description 10/12/2007 Outpatient Historical [facility] Maksim Choudhury MD [address] [place] [phone] Nontoxic Multinodular Goiter Social History Tobacco Use Types Packs/Day Years Used Date Smoking Tobacco: Never Assessed Comments Unknown Sex and Gender Information Value Date Recorded Sex Assigned at Not on file Legal Sex Female 5:10 AM PUBLIC RELATIONS SENIOR ASSOCIATE Gender Identity Not on file Sexual Orientation Not on file documented as of this encounter Plan of Treatment Not on file documented as of this encounter Procedures Procedure Name Priority Date/Time Associated Diagnosis Comments THYROGLOBULIN, TUMOR MARKER Routine 10/12/2007 9:30 AM PUBLIC RELATIONS SENIOR ASSOCIATE TSH Routine 10/12/2007 9:30 AM PUBLIC RELATIONS SENIOR ASSOCIATE documented in this encounter Results * (ABNORMAL) THYROGLOBULIN (10/12/2007 9:30 AM PUBLIC RELATIONS SENIOR ASSOCIATE) THYROGLOBULIN AB <20 <20 IU/mL INT ERFACE SYSTEM THYROGLOBULIN <0.2(L) 2.0 - 35.0 ng/mL INTERFACE SYSTEM Comment: Additional information: Riprap Worker: DPC Methodology: FORTINO When monitoring patients over time, Tg values obtained with different methods cannot be used interchangeably due to the differences in method and reagent specifications. Lab test performed by: [facility] [id number] [place], [place] CHARISSA SAM MD 10/12/2007 9:30 AM PUBLIC RELATIONS SENIOR ASSOCIATE us Maksim Coronado MD CHEMISTRY ORDERABLES Final Result Performing Organization Address City/[facility] de Phone Number INTERFACE SYSTEM Refer to clinic/hospital department * (ABNORMAL) TSH (10/12/2007 9:30 AM PUBLIC RELATIONS SENIOR ASSOCIATE) TSH 16.44(H) 0.27 - 4.20 uU/mL INTERFACE SYSTEM 10/12/2007 9:30 AM PUBLIC RELATIONS SENIOR ASSOCIATE us Maksim Coronado MD CHEMISTRY ORDERABLES Final Result Performing Organization Address City/[facility] Phone Number INTERFACE SYSTEM Refer to clinic/hospital department documented in this encounter Visit Diagnoses Diagnosis Nontoxic multinodular goiter documented in this encounter Care Teams Technical Account Manager Relationship Specialty Start Date End Date Jorge Urias MD [address] [place] [address] PCP - General 12/03/09 documented as of this encounter
--- OUTSIDE RECORDS SUMMARY | 2025-08-14 05:10 | XMS_ITS | Encounter Summary ---
Author Organization [employer] Address [address] [place] [address] Care Team Providers Care Camera Technician Name Role Phone Jorge Urias MD Primary Care Provider Encounter Details Date Type Department Care Team (Latest Contact Info) Description 08/28/2006 Outpatient Historical [facility] Maksim Coronado MD [address] [place] [phone] Malignant Neoplasm of Thyroid Gland (CMS/HCC) (Primary Dx) Social History Tobacco Use Types Packs/Day Years Used Date Smoking Tobacco: Never Assessed Comments Unknown Sex and Gender Information Value Date Recorded Sex Assigned at Not on file Legal Sex Female 5:10 AM CASE MANAGEMENT COORDINATOR Gender Identity Not on file Sexual Orientation Not on file documented as of this encounter Plan of Treatment Not on file documented as of this encounter Visit Diagnoses Diagnosis Malignant neoplasm of thyroid gland (CMS/HCC)- Primary Malignant neoplasm of thyroid gland documented in this encounter Care Teams Camera Technician Relationship Specialty Start Date End Date Jorge Urias MD [address] [place] [address] PCP - General 12/03/09 documented as of this encounter
--- OUTSIDE RECORDS SUMMARY | 2025-08-14 05:10 | XMS_ITS | Clinical Summary ---
Author Organization [facility] Address [address] [place] [address] Care Team Providers Care Engineering Inspection Assistant Name Role Phone Jorge Urias MD Primary Care Provider [phone] Elgin Ford MD Unavailable [phone] Allergies Active Allergy Reactions Criticality Noted Date Comments Attapulgite Rash Medium 11/17/2009 Gvmgh-Kupyscug-Moc-Turp-Pet Rash Medium 11/18/19 10 Fentanyl Nausea & [...] by mouth Anayeli Quercetin Once daily Active Adolphus Thyroid 90 mg tabletIndications: Postoperative hypothyroidism TAKE [...] & Plan (05/08/2019 1:45 PM CDT): Continue Adolphus Thyroid 90 mg daily. Goal is TSH 0.5 - 2, given excellent prognosis. Assessment & Plan (05/02/2018 10:55 AM CDT): Continue Adolphus Thyroid 90 mg daily. Goal is TSH [...] file Legal Sex Female 7:05 AM AIR QUALITY CONSULTANT Gender Identity Female 07/13/2021 1:56 PM CDT Sexual Orientation Not on file Obstetrics History Para Term AB IAB SAB Ectopic Multiple Livin g Live Births 1 Date Outcome GA Total Labor Labor/2nd/3rd Weight Sex Type Anes PTL Kemi A1 A5 Name Clin Last Filed Vital Signs Vital Sign Reading Time Taken Comments Blood Pressure 115/74 08/22/2023 4:04 PM AIR QUALITY CONSULTANT Pulse 75 08/22/2023 4:04 PM AIR QUALITY CONSULTANT Temperature 36.4 C (97.5 F) 08/22/2023 4:04 PM AIR QUALITY CONSULTANT Respiratory Rate - - Oxygen Saturation - [...] Most Recently Relevant to Health Maintenance Insurance [facility] CHOICE PLUS [facility] CHOICE PLUS Care Teams Engineering Inspection Assistant Relationship Specialty Start Date End Date Jorge Urias MD PCP - General 04/19/17 Elgin Ford MD [address] [place] [address] Referring Physician Obstetrics and Gynecology 01/05/24
--- OUTSIDE RECORDS SUMMARY | 2025-08-14 05:10 | XMS_ITS | Encounter Summary ---
Author Organization [employer] Address [address] [place] [address] Care Team Providers Care Insurance Advisor Name Role Phone Jorge Urias MD Primary Care Provider Encounter Details Date Type Department Care Team (Late st Contact Info) Description 12/02/2006 Outpatient Historical [facility] Jake King DO [address] [place] [address] Social History Tobacco Use Types Packs/Day Years Used Date Smoking Tobacco: Never Assessed Comments Unknown Sex and Gender Information Value Date Recorded Sex Assigned at Not on file Legal Sex Female 5:10 AM SOFTWARE QA SYSTEM SPECIALIST Gender Identity Not on file Sexual Orientation Not on file documented as of this encounter Plan of Treatment Not on file documented as of this encounter Visit Diagnoses Not on filedocumented in this encounter Care Teams Insurance Advisor Relationship Specialty Start Date End Date Jorge Urias MD [address] [place] [address] PCP - General 12/03/09 documented as of this encounter
--- OUTSIDE RECORDS SUMMARY | 2025-08-14 05:10 | XMS_ITS | Clinical Summary ---
Author Organization [facility] Address [address] [place] [address] Phone Care Team Providers Care Director Of Medical Education Name Role Phone Jorge Urias MD Primary Care Provider Allergies Active Allergy Reactions Criticality Noted Date Comments Attapulgite Rash Medium 11/17/2009 Zvuwb-Uufukqjt-Asy-Turp-Pet Rash Medium 11/18/19 10 Medications levothyroxine (SYNTHROID) [...] on file Legal Sex Female 5:10 AM CLAIMS COORDINATOR Gender Identity Not on file Sexual Orientation Not on file Last Filed Vital Signs Vital Sign Reading Time Taken Comments Blood Pressure 99/65 11/20/2009 5:40 PM CLAIMS COORDINATOR Pulse 76 11/20/2009 5:40 PM CLAIMS COORDINATOR Temperature 36.4 C (97.6 F) 11/20/2009 5:40 PM CLAIMS COORDINATOR Respiratory Rate 16 11/20/2009 5:40 PM CLAIMS COORDINATOR Oxygen Saturation 99% 11/20/2009 5:40 PM CLAIMS COORDINATOR Inhaled Oxygen Concentration - - Weight 54.4 kg (120 lb) 12/03/2009 9:53 AM CDT Height 170.2 cm (5' 7) 11/20/2009 12:16 PM CLAIMS COORDINATOR Body Mass Index 18.79 11/20/2009 12:16 PM CLAIMS COORDINATOR Plan of Treatment Health Maintenance Due Date [...] 2) 2023 INFLUENZA VACCINE (#1) 2025 Insurance [facility] BLUE [employer] BLUE PPO Advance Directives For more information, please contact: [phone] * Full Code (Latest Code Status on File) Date Activated Date Inactivated Comments 11/20/2009 2:22 PM 11/21/2009 2:01 AM * Full Code Date Activated Date Inactivated Comments 11/20/2009 12:10 PM 11/20/2009 2:22 PM Care Teams Director Of Medical Education Relationship Specialty Start Date End Date Jorge Urias MD [address] [place] [address] [facility] - General 12/03/09
--- OUTSIDE RECORDS SUMMARY | 2025-08-14 05:10 | XMS_ITS | Encounter Summary ---
Author Organization [employer] Address [address] [place] [address] Care Team Providers Care Director Life Insurance Name Role Phone Jorge Urias MD Primary Care Provider [phone] Encounter Details Date Type Department Care Team (Late st Contact Info) Description 10/31/2006 Outpatient Historical HIS NUCLEAR MEDICINE [facility] Jake King DO [address] [place] [address] Follow-Up Examination, Following Other Surgery (Primary Dx) Social History Tobacco Use Types Packs/Day Years Used Date Smoking Tobacco: Never Assessed Comments Unknown Sex and Gender Information Value Date Recorded Sex Assigned at Not on file Legal Sex Female 5:10 AM SENIOR UI UX DEVELOPER Gender Identity Not on file Sexual Orientation Not on file documented as of this encounter Plan of Treatment Not on file documented as of this encounter Visit Diagnoses Diagnosis Follow-up examination, following other surgery- Primary documented in this encounter Care Teams Director Life Insurance Relationship Specialty Start Date End Date Jorge Urias MD [address] [place] [address] PCP - General 12/03/09 documented as of this encounter
--- OUTSIDE RECORDS SUMMARY | 2025-08-14 05:10 | XMS_ITS | Encounter Summary ---
Author Organization [facility] Address [address] [place] [address] Care Team Providers Care Lean Manufacturing Leader Name Role Phone Jorge Urias MD Primary Care Provider [phone] Encounter Details Date Type Department Care Team (Latest Contact Info) Description 10/10/2007 Outpatient Historical [facility]IC[facility] Maksim Molina MD [address] [place] [address] [address] [place] [address] Malignant Neoplasm of Thyroid Gland (CMS/HCC) Social History Tobacco Use Types Packs/Day Years Used Date Smoking Tobacco: Never Assessed Comments Unknown Sex and Gender Information Value Date Recorded Sex Assigned at Not on file Legal Sex Female 5:10 AM INDUCTION HEAT TREATER Gender Identity Not on file Sexual Orientation Not on file documented as of this encounter Plan of Treatment Not on file documented as of this encounter Procedures Procedure Name Priority Date/Time Associated Diagnosis Comments NM THYROID CA METS WHOLE BODY Routine 10/10/2007 2:10 PM INDUCTION HEAT TREATER documented in this encounter Results * NM THYROID CA METS WHOLE BODY (10/10/2007 2:10 PM INDUCTION HEAT TREATER) Anatomical Region Laterality Modality Neck Other 10/10/2007 2:10 PM INDUCTION HEAT TREATER Narrative 10/12/2007 10:03 AM INDUCTION HEAT TREATER [address] [address] Admit Date: 10/10/2007 LINH QUIROS Sex: F Admit Prov: MAKSIM MOLINA Date: 1975 Primary Care Prov: CMRN: [id number] [id number] [facility] Ordering Prov: N/A Accession Number: [id number] Interpretation I-131 whole-body scan for metastatic thyroid [...] 10/12/2007 10:03 Procedure Note Vera Ray 10/12/2007 [address] [place], [place] [address] Admit Date: 10/10/2007 BLACK, LINH Sex: F Admit Prov: MAKSIM MOLINA Date: 1975 Primary Care Prov: CMRN: [id number] [facility] [id number] IMAGING SERVICES Ordering Prov: N/A Interpretation I-131 [...] gland documented in this encounter Care Teams Lean Manufacturing Leader Relationship Specialty Start Date End Date Jorge Urias MD [address] [place] [address] PCP - General 12/03/09 documented as of this encounter
--- OUTSIDE RECORDS SUMMARY | 2025-08-14 05:10 | XMS_ITS | Encounter Summary ---
Author Organization [facility] Address [address] [place] [address] Care Team Providers Care Air Conditioning Installer Name Role Phone Jorge Urias MD Primary Care Provider Encounter Details Date Type Department Care Team (Late st Contact Info) Description 09/08/2006 Outpatient Historical [facility] [address] [place] [address] Juana Gaytan MD [address] [address] [address] [place] [address] Social History Tobacco Use Types Packs/Day Years Used Date Smoking Tobacco: Never Assessed Comments Unknown Sex and Gender Information Value Date Recorded Sex Assigned at Not on file Legal Sex Female 5:10 AM CIRCUIT CLERK Gender Identity Not on file Sexual Orientation Not on file documented as of this encounter Plan of Treatment Not on file documented as of this encounter Visit Diagnoses Not on filedocumented in this encounter Care Teams Air Conditioning Installer Relationship Specialty Start Date End Date Jorge Urias MD [address] [place] [address] PCP - General 12/03/09 documented as of this encounter
--- OUTSIDE RECORDS SUMMARY | 2025-08-14 05:10 | XMS_ITS | Encounter Summary ---
Author Organization [facility] Address [address] [place] [address] Care Team Providers Care Beauty Operator Apprentice Name Role Phone Jorge Urias MD Primary Care Provider [phone] Encounter Details Date Type Department Care Team (Late st Contact Info) Description 04/07/2020 Prep for Procedure [facility] [address] [place] [address] [place] [address] [facility] [address] [place] [address] Social History Tobacco Use Types Packs/Day Years [...] and Family Not on file 04/07/2020 Attends Taoism Services Not on file 04/07 Active Member of Clubs or Organizations Not on f ile 04/07/2020 Attends Club or Organization Meetings Not on ayala e 04/07/2020 Marital Status Not on file 04/07/2020 Overall Financial Resource Strain (CARDIA) Answe r Date Recorded Difficulty of Paying Living Expenses Not hard at all 04/07/2020 [facility] [place] of Occupat ional Health - Occupational Stress [...] DETECTED NOT DETECTED 04/13/2020 12:12 AM CDT [employer] [facility] Comment: A Not Detected (negative) test result [...] providers and patients using the following websites: https://www.Kl[employer].com/home/Covid-19/HCP/QuestIVD/fact- sheet.html https://www.Klutch.Xamarin/home/Covid-19/Patients/ QuestIVD/fact-sheet.html This test has been authorized by the FDA under an Emergency Use Authorization (EUA) for use by authorized laboratories. Due to the current public health emergency, [facility] is receiving a high volume of samples [...] about COVID-19 can be found at the [employer] website: www.lifecake/Covid19. Test performed at [employer] [facility] [address] [place] [address] Director: LESLIE LIN DO,MPH NASOPHARYNGEAL SWAB / Unknown 04/11/2020 8:10 AM CDT us Ruslan Bray MD MICROBIOLOGY - GENERAL ORDERABLES Final Result [employer] [facility] [id number] [place] [address] documented in this encounter Visit Diagnoses Diagnosis Pre-op testing- Primary Preoperative examination, unspecified documented in this encounter Additional Health Concerns Infection Onset Date Last Indicated Resolved Time COVID-19 Rule Out 04/11/2020 04/11/2020 04/13/2020 12:12 AM CDT documented as of this encounter Care Teams Beauty Operator Apprentice Relationship Specialty Start Date End Date Jorge Urias MD [address] [place] [address] PCP - General FAMILY PRACTICE 01/15/20 documented as of this encounter
--- OUTSIDE RECORDS SUMMARY | 2025-08-14 05:10 | XMS_ITS | Encounter Summary ---
Author Organization [employer] Address [address] [place] [address] Care Team Providers Care Education Liaison Name Role Phone Jorge Urias MD Primary Care Provider [phone] Encounter Details Date Type Department Care Team (Latest Contact Info) Description 09/08/2006 Outpatient Historical [facility] Elias Barr MD 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 Dx) Social History Tobacco Use Types Packs/Day Years Used Date Smoking Tobacco: Never Assessed Comments Unknown Sex and Gender Information Value Date Recorded Sex Assigned at Not on file Legal Sex Female 5:10 AM ASSEMBLY LOADER Gender Identity Not on file Sexual Orientation Not on file documented as of this encounter Plan of Treatment Not on file documented as of this encounter Procedures Procedure Name Priority Date/Time Associated Diagnosis Comments CALCIUM LEVEL Routine 09/09/2006 12:15 PM ASSEMBLY LOADER CALCIUM LEVEL Routine 09/09/2006 5:00 AM ASSEMBLY LOADER CALCIUM LEVEL Routine 09/08/2006 9:20 PM ASSEMBLY LOADER CALCIUM LEVEL Routine 09/08/2006 6:41 PM ASSEMBLY LOADER POC , URINE Routine 09/08/2006 12:30 PM ASSEMBLY LOADER HEMOGLOBIN AND HEMATOCRIT Routine 09/08/2006 12:17 PM ASSEMBLY LOADER documented in this encounter Results * CALCIUM LEVEL (09/09/2006 12:15 PM ASSEMBLY LOADER) CALCIUM 8.5 8.4 - 10.2 mg/dL INTERFACE SYSTEM 09/09/2006 12:1 5 PM ASSEMBLY LOADER us Elias Barr MD CHEMISTRY ORDERABLES Final Resul t Performing Organization Address [facility] Phone Number INTERFACE SYSTEM Refer to clinic/hospital department * (ABNORMAL) CALCIUM LEVEL (09/09/2006 5:00 AM ASSEMBLY LOADER) CALCIUM 7.8(L) 8.4 - 10.2 mg/dL INTERFACE SYSTEM 09/09/2006 5:00 AM ASSEMBLY LOADER us Elias Barr MD CHEMISTRY ORDERABLES Final Resul t Performing Organization Address [facility] Phone Number INTERFACE SYSTEM Refer to clinic/hospital department * (ABNORMAL) CALCIUM LEVEL (09/08/2006 9:20 PM ASSEMBLY LOADER) CALCIUM 8.2(L) 8.4 - 10.2 mg/dL INTERFACE SYSTEM 09/08/2006 9:20 PM ASSEMBLY LOADER us Elias Barr MD CHEMISTRY ORDERABLES Final Resul t Performing Organization Address [facility] Phone Number INTERFACE SYSTEM Refer to clinic/hospital department * CALCIUM LEVEL (09/08/2006 6:41 PM ASSEMBLY LOADER) CALCIUM 8.6 8.4 - 10.2 mg/dL INTERFACE SYSTEM 09/08/2006 6:41 PM ASSEMBLY LOADER us Elias Barr MD CHEMISTRY ORDERABLES Final Resul t Performing Organization Address [facility] Phone Number INTERFACE SYSTEM Refer to clinic/hospital department * POC , URINE (09/08/2006 12:30 PM ASSEMBLY LOADER) , URINE POC Negative Negative INTERFACE SYSTEM 09/08/2006 12:3 0 PM ASSEMBLY LOADER us Elias Barr MD POINT OF CARE TESTING Final Resu lt INTERFACE SYSTEM Refer to clinic/hospital department * HEMOGLOBIN AND HEMATOCRIT (09/08/2006 12:17 PM ASSEMBLY LOADER) HEMOGLOBIN 14.4 11.8 - 14.8 g/dL INTERFACE SYSTEM HEMATOCRIT 41.2 35.5 - 44.0 % INTERFACE SYSTEM 09/08/2006 12:1 7 PM ASSEMBLY LOADER us Elias Barr MD HEMATOLOGY ORDERABLES Final Resu lt Performing Organization Address [facility] Co de Phone Number INTERFACE SYSTEM Refer to clinic/hospital department documented in this encounter Visit Diagnoses Diagnosis Malignant neoplasm of thyroid gland (CMS/HCC)- Primary Malignant neoplasm of thyroid gland documented in this encounter Care Teams Education Liaison Relationship Specialty Start Date End Date Jorge Urias MD [address] [place] [address] PCP - General 12/03/09 documented as of this encounter
--- OUTSIDE RECORDS SUMMARY | 2025-08-14 05:10 | XMS_ITS | Encounter Summary ---
Author Organization [employer] Address [address] [place] [address] Care Team Providers Care Apprentice Pattern Maker Name Role Phone Jorge Urias MD Primary Care Provider Encounter Details Date Type Department Care Team (Latest Contact Info) Description 11/11/2007 Outpatient Historical [facility] Maksim Coronado MD [address] [address] Malignant Neoplasm of Thyroid Gland (CMS/HCC) Social History Tobacco Use Types Packs/Day Years Used Date Smoking Tobacco: Never Assessed Comments Unknown Sex and Gender Information Value Date Recorded Sex Assigned at Not on file Legal Sex Female 5:10 AM INCLUSION SPECIALIST Gender Identity Not on file Sexual Orientation Not on file documented as of this encounter Plan of Treatment Not on file documented as of this encounter Visit Diagnoses Diagnosis Malignant neoplasm of thyroid gland (CMS/HCC) Malignant neoplasm of thyroid gland documented in this encounter Care Teams Apprentice Pattern Maker Relationship Specialty Start Date End Date Jorge Urias MD [address] [place] [address] PCP - General 12/03/09 documented as of this encounter
--- OUTSIDE RECORDS SUMMARY | 2025-08-14 05:10 | XMS_ITS | Encounter Summary ---
Author Organization [employer] Address [address] [place] [address] Care Team Providers Care Relay Adjuster Name Role Phone Jorge Urias MD Primary Care Provider [phone] Encounter Details Date Type Department Care Team (Late st Contact Info) Description 08/25/2006 Outpatient Historical [facility], [address] Maksim Coronado MD [address] [place] [address] Social History Tobacco Use Types Packs/Day Years Used Date Smoking Tobacco: Never Assessed Comments Unknown Sex and Gender Information Value Date Recorded Sex Assigned at Not on file Legal Sex Female 5:10 AM ASSOCIATE PROFESSOR OF ART HISTORY Gender Identity Not on file Sexual Orientation Not on file documented as of this encounter Plan of Treatment Not on file documented as of this encounter Visit Diagnoses Not on filedocumented in this encounter Care Teams Relay Adjuster Relationship Specialty Start Date End Date Jorge Urias MD [address] [place] [address] PCP - General 12/03/09 documented as of this encounter
--- OUTSIDE RECORDS SUMMARY | 2025-08-14 05:10 | XMS_ITS | Encounter Summary ---
Author Organization [employer] Address [address] [place] [address] Care Team Providers Care Operations Support Analyst Name Role Phone Jorge Urias MD Primary Care Provider [phone] Encounter Details Date Type Department Care Team (Latest Contact Info) Description 09/14/2006 Outpatient Historical [facility] Elias Barr MD [address] [facility] [place] [address] Malignant Neoplasm of Thyroid Gland (CMS/HCC) (Primary Dx) Social History Tobacco Use Types Packs/Day Years Used Date Smoking Tobacco: Never Assessed Comments Unknown Sex and Gender Information Value Date Recorded Sex Assigned at Not on file Legal Sex Female 5:10 AM RECRUITING SCHEDULER Gender Identity Not on file Sexual Orientation Not on file documented as of this encounter Plan of Treatment Not on file documented as of this encounter Procedures Procedure Name Priority Date/Time Associated Diagnosis Comments CALCIUM LEVEL Routine 09/14/2006 9:59 AM RECRUITING SCHEDULER documented in this encounter Results * CALCIUM LEVEL (09/14/2006 9:59 AM RECRUITING SCHEDULER) CALCIUM 9.5 8.4 - 10.2 mg/dL INTERFACE SYSTEM 09/14/2006 9:59 AM RECRUITING SCHEDULER us Elias Barr MD CHEMISTRY ORDERABLES Edited INTERFACE SYSTEM Refer to clinic/hospital department documented in this encounter Visit Diagnoses Diagnosis Malignant neoplasm of thyroid gland (CMS/HCC)- Primary Malignant neoplasm of thyroid gland documented in this encounter Care Teams Operations Support Analyst Relationship Specialty Start Date End Date Jorge Urias MD [address] [place] [address] PCP - General 12/03/09 documented as of this encounter
--- OUTSIDE RECORDS SUMMARY | 2025-08-14 05:10 | XMS_ITS | Encounter Summary ---
Author Organization [email or web address] Address [address] [place] [address] Care Team Providers Care Assurance Manager Insurance Name Role Phone Jorge Urias MD Primary Care Provider [phone] Encounter Details Date Type Department Care Team (Late st Contact Info) Description 10/18/2006 Outpatient Historical [facility] Jake King DO [address] [place] [address] Social History Tobacco Use Types Packs/Day Years Used Date Smoking Tobacco: Never Assessed Comments Unknown Sex and Gender Information Value Date Recorded Sex Assigned at Not on file Legal Sex Female 5:10 AM GENERAL UTILITY MAINTENANCE REPAIRER Gender Identity Not on file Sexual Orientation Not on file documented as of this encounter Plan of Treatment Not on file documented as of this encounter Visit Diagnoses Not on filedocumented in this encounter Care Teams Assurance Manager Insurance Relationship Specialty Start Date End Date Jorge Urias MD [address] [place] [address] PCP - General 12/03/09 documented as of this encounter
--- OUTSIDE RECORDS SUMMARY | 2025-08-14 05:10 | XMS_ITS | Encounter Summary ---
Author Organization [employer] Address [address] [place] [address] Care Team Providers Care Roller Pneumatic Name Role Phone Jorge Urias MD Primary Care Provider [phone] Encounter Details Date Type Department Care Team (Latest Contact Info) Description 10/02/2006 Outpatient Historical [facility] Elias Barr MD [address] [place] [address] Malignant Neoplasm of Thyroid Gland (CMS/HCC) (Primary Dx) Social History Tobacco Use Types Packs/Day Years Used Date Smoking Tobacco: Never Assessed Comments Unknown Sex and Gender Information Value Date Recorded Sex Assigned at Not on file Legal Sex Female 5:10 AM ROLL SHOP SUPERVISOR Gender Identity Not on file Sexual Orientation Not on file documented as of this encounter Plan of Treatment Not on file documented as of this encounter Visit Diagnoses Diagnosis Malignant neoplasm of thyroid gland (CMS/HCC)- Primary Malignant neoplasm of thyroid gland documented in this encounter Care Teams Roller Pneumatic Relationship Specialty Start Date End Date Jorge Urias MD [address] [place] [address] PCP - General 12/03/09 documented as of this encounter
--- NOTE | 2025-08-14 05:29 | ED.GENADULT ---
HPI - General Adult General Chief complaint: Skin/Abscess/Foreign Body Stated complaint: Food Bolus Time Seen by Provider: 08/14/25 04:53 Source: patient Mode of arrival: ambulatory Limitations: no limitations History of Present Illness HPI narrative: Patient is a 49-year-old female presents to the emergency department complaining of food being stuck in her esophagus. Patient notes that this has happened to her many times in the past, has had ballooning done back in 2019 and 2022 was the most recent, does not have a power originator. Patient states he was eating roast beef around 6:00 p.m. last night and felt to get stuck and has not gotten any relief. Patient tried carbonated beverage without any relief. Patient notes that she has tried to eat and drink liquids since and is not able to keep anything down. Related Data Home Medications ?Medication ?Instructions ?Recorded ?Confirmed ?Last Taken ?Type thyroid (pork) 90 mg tablet 90 mg PO DAILY 10/07/19 05/21/25 12/06/22 06:45 History ([place] Thyroid) levothyroxine 25 mcg tablet 25 mcg PO DAILY 11/23/22 05/21/25 12/05/22 History estradiol 0.05 mg/24 hr weekly transdermal WEEKLY 08/20/24 05/21/25 Unknown History transdermal patch Allergies Allergy/AdvReac Type Severity Reaction Status Date / Time attapulgite Allergy Unknown HIVES Verified 05/21/25 12:59 camphor Allergy Unknown Unknown Verified 05/21/25 12:59 menthol Allergy Unknown Unknown Verified 05/21/25 12:59 fentanyl AdvReac Severe SEVERE, Verified 05/21/25 12:59 PROLONGED N&V Review of Systems Review of Systems: A 10 system review of systems was completed on the patient and is negative except for what is stated in the HPI. Nursing and ancillary documentation was reviewed. [facility] Past Medical History Medical History Inflammatory arthritis Eosinophilic esophagitis BMI between 19-24,adult Acne vulgaris Acute bronchitis, unspecified Acute sinusitis with symptoms > 10 days Allergic rhinitis, unspecified Body mass index [BMI] 20.0-20.9, adult (09/26/18) Chest discomfort Cough Dietary counseling and surveillance (12/18/17) Encounter for screening for lipoid disorders Low vitamin D level Other specified hypothyroidism Pain of upper abdomen GERD without esophagitis Hiatal hernia Insomnia, unspecified Mitral valve prolapse Sleep arousal disorder Tension headache Thyroid cancer Surgical History Surgical History Hx of breast augmentation Hx of cholecystectomy History of thyroidectomy Family History Family History Father Hypertension Family history of coronary artery disease Family history of elevated blood lipids Family history of kidney disease Rheumatoid arthritis Grandparent Hypertension Cerebrovascular accident Carcinoma of colon Family history of coronary artery disease Lung cancer Mother Family history of elevated blood lipids Family history of arthritis Social History Social History Smoking status: Never smoker Second hand tobacco smoke exposure: Yes Alcohol intake: current Drinks per week: 3 Substance use: never Substance use type: does not use Lack of Transportation: No Lack of Food: Never True Current Housing: I Have Housing Concerned About Future Housing: No Difficulty Paying Gas/Electric Bills: No Difficulty Paying for Meds: No Currently Unemployed: No Education: Bachelor's Degree Difficulty w/ Childcare or Family Care: No Living arrangements: with family Occupation/Education: occupation Gender identity (if verbalized by the patient): Female Spiritual care concerns: No Exam Narrative: CONST: No acute distress. Well nourished. HENMT: Head is normocephalic and atraumatic. Moist mucous membranes. No posterior oropharynx erythema. EYES: No scleral icterus. No conjunctival injection or pallor. PERRL. NECK: No meningeal signs. RESP: Able to speak in full sentences. Normal respiratory effort. CTAB. CARDIO: Regular rate. Regular rhythm. 2+ DP and radial pulses bilaterally. GI: Nondistended. No tenderness to palpation. Soft. : No CVA tenderness to palpation. SKIN: No rashes or lesions noted on exposed skin. NEURO: Oriented x3. Moves all extremities. EXTREM/MSK/BACK: No pedal edema. PSYCH: Normal affect. Course Vital Signs Vital signs: Vital Signs Temperature 97.8 F 08/14/25 05:16 Pulse Rate 85 08/14/25 05:16 Respiratory Rate 16 08/14/25 05:16 Blood Pressure 111/78 08/14/25 05:16 Pulse Oximetry 100 08/14/25 05:16 Temperature 97.8 F 08/14/25 05:16 Pulse Rate 85 08/14/25 05:16 Respiratory Rate 16 08/14/25 05:16 Blood Pressure 111/78 08/14/25 05:16 Pulse Oximetry 100 08/14/25 05:16 [facility] Narrative Medical decision making narrative: Patient presents with the above complaint. Initial vitals are remarkable for no significant abnormalities. Physical examination as noted above. Plan discussed: laboratory analysis, CXR, EKG. Patient ordered glucagon, IV fluids. 05:50 -I spoke with Gastroenterology on-call who notes in to keep the patient in the ER for now, we will plan to take patient to the operating room for endoscopy at some point today, likely around noon. Differential Diagnosis Differential Diagnosis: Esophageal food impaction, esophagitis, stricture. Medical Records I have reviewed the following patient records and this information was taken into consideration when formulating the assessment and plan.: previous ER visits Lab Data [facility] Lab Attestation statement: I personally reviewed the patient's lab results. Lab results narrative: CBC is without any significant abnormalities. Comprehensive metabolic panel reveals an AST of 46. Lipase is 149. Magnesium is 2.2. 08/14/25 06:17 08/14/25 06:17 Labs: Lab Results 08/14/25 Range/Units 06:17 WBC 8.6 (4.5-10.0) K/mm3 RBC 5.06 (4.2-5.4) M/mm3 Hgb 15.7 H (12.0-15.0) g/dL Hct 46.8 (37.0-47.0) % MCV 92.5 (80-100) fl MCH 31.0 (26-34) pg MCHC 33.5 (32-36) g/dl RDW 12.7 (11.5-14.5) % Plt Count 339 (150-375) k/mm3 MPV 9.0 (7.4-10.4) fl Immature Gran % (Auto) 0.3 (0-0.5) % Neut % (Auto) 65.3 (45.5-73.1) % Lymph % (Auto) 23.2 (18.3-44.2) % [place] % (Auto) 6.1 (2.6-8.5) % Eos % (Auto) 4.3 (0-4.4) % Baso % (Auto) 0.8 (0.2-1.2) % Lymph # (Auto) 1.99 (0.9-3.2) K/mm3 [place] # (Auto) 0.5 (0.1-0.6) K/mm3 Eos # (Auto) 0.4 H (0-0.3) K/mm3 Baso # (Auto) 0.1 (0.0-0.1) K/mm3 Abs Immat Gran (auto) 0.03 (0.00-0.031) K/mm3 Absolute Neuts (auto) 5.6 (1.3-6.7) K/mm3 Absolute Nucleated RBC 0.000 (0.0-0.012) K/mm3 Nucleated RBC % 0.0 (0.0-0.2) % Sodium 138 (137-145) mmol/L Potassium 3.9 (3.4-5.0) mmol/L Chloride 102 (98-107) mmol/L Carbon Dioxide 28 (22-30) mmol/L Anion Gap 8 (4-12) mmol/L BUN 17 (7-17) mg/dL Creatinine 0.94 (0.7-1.0) mg/dL Estim Creat Clear Calc 61 ml/min Estimated GFR > 60 (59 - ) Glucose 104 (65-110) mg/dL Calcium 9.9 (8.4-10.2) mg/dL Magnesium 2.2 (1.6-2.3) mg/dL Total Bilirubin 0.9 (0.2-1.3) mg/dL AST 46 H (14-36) U/L ALT 33 (6-35) U/L Alkaline Phosphatase 85 (38-126) U/L Total Protein 9.3 H (6.3-8.2) g/dL Albumin 5.1 (3.5-5.1) g/dL Lipase 149 (23-300) U/L ECG Data EKG #1: Attestation: I personally reviewed and interpreted this ECG as follows: ECG completion date: 08/14/25 ECG completion time: 06:31 Interpretation: Rate of 77, rhythm is indeterminate and appears to be in ectopic atrial rhythm, possible right ventricular hypertrophy, no ST elevations or depressions, QTC interval of 418 milliseconds, QRS duration of 84 milliseconds, SC interval 108 milliseconds. Discharge Plan Discharge Clinical Impression: Food impaction of esophagus Qualifiers: Encounter type: initial encounter Qualified Code(s): T18.128A - Food in esophagus causing other injury, initial encounter Patient Disposition: Still a Patient Condition: Stable Patient Language: Serbian Prescriptions: No Action thyroid (pork) [[place] Thyroid] 90 mg tablet 90 mg PO DAILY estradiol 0.05 mg/24 hr patch weekly transdermal WEEKLY progesterone micronized 200 mg capsule 200 mg PO QHS Qty: 90 0RF albuterol sulfate [Ventolin HFA] 90 mcg/actuation HFA aerosol inhaler 1 inh inhalation Q4H PRN (Reason: shortness of breath or wheezing) Qty: 6.7 0RF levothyroxine 25 mcg tablet 25 mcg PO DAILY Follow-up/Referrals: Jorge Urias MD [Primary Care Provider, [facility]] Time of Disposition: 05:58
--- NOTE | 2025-08-14 05:39 | ECG_ITS ---
Test Date: 2025-08-14 06:31:06 Measurements Intervals [place] Rate: 77 P: 132 NM: 108 QRS: 190 QRSD: 84 T: 188 QT: 369 QTc: 418 Interpretive Statements SINUS RHYTHM WITH SHORT NM INTERVAL LIMB LEAD REVERSAL DELAYED PRECORDIAL R/S TRANSITION BORDERLINE T WAVE ABNORMALITY- ANT/INF LEADS BASELINE ARTIFACT- I, II, III, AVR, AVL, AVF, V4-V6 BORDERLINE ECG No previous ECG available for comparison Electronically Signed On 08-14-2025 07:52:56 [employer] by Govind Rojas D.O.
[2025-08-14 06:21] LABS: Hematocrit 46.8 % (37.0-47.0); Hemoglobin 15.7 g/dL (12.0-15.0); Immature Granulocyte Percent A 0.3 % (0-0.5); Lymphocytes Absolute Auto 1.99 K/mm3 (0.9-3.2); Mean Corpuscular HGB Conc 33.5 g/dl (32-36); Mean Corpuscular Hemoglobin 31.0 pg (26-34); Mean Corpuscular Volume 92.5 fl (80-100); Nucleated Red Blood Cells Absolute Auto 0.000 K/mm3 (0.0-0.012); Nucleated Red Blood Cells Perc 0.0 % (0.0-0.2); Platelet Count Result 339 k/mm3 (150-375); Red Blood Count 5.06 M/mm3 (4.2-5.4); White Blood Count 8.6 K/mm3 (4.5-10.0)
[2025-08-14] MEDS: GLUCAGON FOR INJ 1 MG VIAL IV PUSH (06:21)
[2025-08-14 06:34] LABS: Alanine Aminotransferase 33 U/L (6-35); Albumin Level 5.1 g/dL (3.5-5.1); Alkaline Phosphatase 85 U/L (38-126); Anion Gap 8 mmol/L (4-12); Aspartate Amino Transferase 46 U/L (14-36); Bilirubin,Total 0.9 mg/dL (0.2-1.3); Blood Urea Nitrogen 17 mg/dL (7-17); Calcium 9.9 mg/dL (8.4-10.2); Carbon Dioxide 28 mmol/L (22-30); Chloride 102 mmol/L (98-107); Estimated CRCL calculation 61 ml/min; Estimated Glomerular Filt Rate > 60; Glucose 104 mg/dL (65-110); Lipase 149 U/L (23-300); Magnesium 2.2 mg/dL (1.6-2.3); Potassium 3.9 mmol/L (3.4-5.0); Sodium 138 mmol/L (137-145); Total Protein 9.3 g/dL (6.3-8.2)
[2025-08-14] MEDS: SODIUM CHLORIDE 0.9% IV 1,000 ML 150 ML IV CONT (09:20)
--- NOTE | 2025-08-14 10:52 | WPDANESEPPF ---
Anes - Initial Pre Proc Eval Procedure: Operation Date: 08/14/25 15:00 Proposed Procedures p Esophagogastroduodenoscopy - Mac Kiran MD Date/Time: 08/14/25 10:52 Surgeon: Mac Kiran MD Pre Op Diagnosis: Food Bolus Patient Data Age: 49 Gender: F Height: 1.7 m Weight: 62.6 kg Last Vital Signs Temp 36.9 C 08/14/25 10:16 Pulse 77 08/14/25 10:16 Resp 16 08/14/25 10:16 BP 114/72 08/14/25 10:16 Pulse Ox 98 08/14/25 10:16 Allergies Allergy/AdvReac Type Severity Reaction Status Date / Time attapulgite Allergy Unknown HIVES Verified 05/21/25 12:59 camphor Allergy Unknown Unknown Verified 05/21/25 12:59 menthol Allergy Unknown Unknown Verified 05/21/25 12:59 fentanyl AdvReac Severe SEVERE, Verified 05/21/25 12:59 PROLONGED N&V Home Medications ?Medication ?Instructions ?Recorded ?Confirmed ?Type thyroid (pork) 90 mg tablet 90 mg PO DAILY 10/07/19 05/21/25 History ([place] Thyroid) levothyroxine 25 mcg tablet 25 mcg PO DAILY 11/23/22 05/21/25 History estradiol 0.05 mg/24 hr weekly transdermal WEEKLY 08/20/24 05/21/25 History transdermal patch albuterol sulfate 90 mcg/actuation 1 inh inhalation Q4H PRN shortness 12/04/24 05/21/25 Rx aerosol inhaler (Ventolin HFA) of breath or wheezing #6.7 grams progesterone micronized 200 mg 200 mg PO QHS #90 caps 05/21/25 05/21/25 Rx capsule Laboratory Tests 08/14/25 06:17 WBC 8.6 K/mm3 (4.5-10.0) RBC 5.06 M/mm3 (4.2-5.4) Hgb 15.7 H g/dL (12.0-15.0) Hct 46.8 % (37.0-47.0) MCV 92.5 fl (80-100) MCH 31.0 pg (26-34) MCHC 33.5 g/dl (32-36) RDW 12.7 % (11.5-14.5) Plt Count 339 k/mm3 (150-375) MPV 9.0 fl (7.4-10.4) Immature Gran % (Auto) 0.3 % (0-0.5) Neut % (Auto) 65.3 % (45.5-73.1) Lymph % (Auto) 23.2 % (18.3-44.2) [place] % (Auto) 6.1 % (2.6-8.5) Eos % (Auto) 4.3 % (0-4.4) Baso % (Auto) 0.8 % (0.2-1.2) Lymph # (Auto) 1.99 K/mm3 (0.9-3.2) [place] # (Auto) 0.5 K/mm3 (0.1-0.6) Eos # (Auto) 0.4 H K/mm3 (0-0.3) Baso # (Auto) 0.1 K/mm3 (0.0-0.1) Abs Immat Gran (auto) 0.03 K/mm3 (0.00-0.031) Absolute Neuts (auto) 5.6 K/mm3 (1.3-6.7) Absolute Nucleated RBC 0.000 K/mm3 (0.0-0.012) Nucleated RBC % 0.0 % (0.0-0.2) Sodium 138 mmol/L (137-145) Potassium 3.9 mmol/L (3.4-5.0) Chloride 102 mmol/L (98-107) Carbon Dioxide 28 mmol/L (22-30) Anion Gap 8 mmol/L (4-12) BUN 17 mg/dL (7-17) Creatinine 0.94 mg/dL (0.7-1.0) Estim Creat Clear Calc 61 ml/min Estimated GFR > 60 (59 - ) Glucose 104 mg/dL (65-110) Calcium 9.9 mg/dL (8.4-10.2) Magnesium 2.2 mg/dL (1.6-2.3) Total Bilirubin 0.9 mg/dL (0.2-1.3) AST 46 H U/L (14-36) ALT 33 U/L (6-35) Alkaline Phosphatase 85 U/L (38-126) Total Protein 9.3 H g/dL (6.3-8.2) Albumin 5.1 g/dL (3.5-5.1) Lipase 149 U/L (23-300) Patient hx anesthesia problems: none Family hx anesthesia problems: none Results Review: All pre-operative results and documents have been reviewed as part of the pre-operative evaluation. [facility] Past Medical History Medical History Inflammatory arthritis Eosinophilic esophagitis BMI between 19-24,adult Acne vulgaris Acute bronchitis, unspecified Acute sinusitis with symptoms > 10 days Allergic rhinitis, unspecified Body mass index [BMI] 20.0-20.9, adult (09/26/18) Chest discomfort Cough Dietary counseling and surveillance (12/18/17) Encounter for screening for lipoid disorders Low vitamin D level Other specified hypothyroidism Pain of upper abdomen GERD without esophagitis Hiatal hernia Insomnia, unspecified Mitral valve prolapse Sleep arousal disorder Tension headache Thyroid cancer Surgical History Surgical History Hx of breast augmentation Hx of cholecystectomy History of thyroidectomy Family History Family History Father Hypertension Family history of coronary artery disease Family history of elevated blood lipids Family history of kidney disease Rheumatoid arthritis Grandparent Hypertension Cerebrovascular accident Carcinoma of colon Family history of coronary artery disease Lung cancer Mother Family history of elevated blood lipids Family history of arthritis Social History Social History Smoking status: Never smoker Second hand tobacco smoke exposure: Yes Alcohol intake: current Drinks per week: 3 Substance use: never Substance use type: does not use Lack of Transportation: No Lack of Food: Never True Current Housing: I Have Housing Concerned About Future Housing: No Difficulty Paying Gas/Electric Bills: No Difficulty Paying for Meds: No Currently Unemployed: No Education: Bachelor's Degree Difficulty w/ Childcare or Family Care: No Living arrangements: with family Occupation/Education: occupation Gender identity (if verbalized by the patient): Female Spiritual care concerns: No Anes - Eval Final PreProcedure Day of Procedure 08/14/25 10:52 Patient weight: normal Heart: regular rate and rhythm Lungs: clear to auscultation Airway: Mallampati scale class II Neurological: alert and oriented Last oral intake: >/= 8 hours ASA classification: II Emergent: no Anesthetic plan: proceed Anesthesia type and monitoring: general GIVS and standard monitoring Results Review: All pre-operative results and documents have been reviewed as part of the pre-operative evaluation. Informed Consent: The patient's anesthetic plan and its attendant risks and benefits were discussed with the patient/family/POA. Questions were solicited and answers provided to the satisfaction of the patient/family/POA.
[2025-08-14] MEDS: LACTATED RINGERS 1,000 ML 150 ML IV CONT (11:01)
--- NOTE | 2025-08-14 11:04 | PM.HPGS ---
History of Present Illness History of Present Illness Consent: Risks, benefits, and alternatives have been discussed and questions answered. Patient agrees to proceed with procedure. Chief complaint: Food Bolus Narrative: Ree May is a 49 year old female here for food bolus, she has known EoE for which used in the past inhaler steroid but currently she is not taking anything, this is her 3rd presentation with food bolus. Her last GI doctor left the area and currently she is not established with anyone. Review of Systems Review of Systems: All systems reviewed & are unremarkable except as noted in HPI and below PMFSH Past Medical History Medical History Inflammatory arthritis Eosinophilic esophagitis BMI between 19-24,adult Acne vulgaris Acute bronchitis, unspecified Acute sinusitis with symptoms > 10 days Allergic rhinitis, unspecified Body mass index [BMI] 20.0-20.9, adult (09/26/18) Chest discomfort Cough Dietary counseling and surveillance (12/18/17) Encounter for screening for lipoid disorders Low vitamin D level Other specified hypothyroidism Pain of upper abdomen GERD without esophagitis Hiatal hernia Insomnia, unspecified Mitral valve prolapse Sleep arousal disorder Tension headache Thyroid cancer Surgical History Surgical History Hx of breast augmentation Hx of cholecystectomy History of thyroidectomy Family History Family History Father Hypertension Family history of coronary artery disease Family history of elevated blood lipids Family history of kidney disease Rheumatoid arthritis Grandparent Hypertension Cerebrovascular accident Carcinoma of colon Family history of coronary artery disease Lung cancer Mother Family history of elevated blood lipids Family history of arthritis Social History Social History Smoking status: Never smoker Second hand tobacco smoke exposure: Yes Alcohol intake: current Drinks per week: 3 Substance use: never Substance use type: does not use Lack of Transportation: No Lack of Food: Never True Current Housing: I Have Housing Concerned About Future Housing: No Difficulty Paying Gas/Electric Bills: No Difficulty Paying for Meds: No Currently Unemployed: No Education: Bachelor's Degree Difficulty w/ Childcare or Family Care: No Living arrangements: with family Occupation/Education: occupation Gender identity (if verbalized by the patient): Female Spiritual care concerns: No Meds Home Medications and Allergies Home Medications ?Medication ?Instructions ?Recorded ?Confirmed ?Type thyroid (pork) 90 mg tablet 90 mg PO DAILY 10/07/19 05/21/25 History ([place] Thyroid) levothyroxine 25 mcg tablet 25 mcg PO DAILY 11/23/22 05/21/25 History estradiol 0.05 mg/24 hr weekly transdermal WEEKLY 08/20/24 05/21/25 History transdermal patch albuterol sulfate 90 mcg/actuation 1 inh inhalation Q4H PRN shortness 12/04/24 05/21/25 Rx aerosol inhaler (Ventolin HFA) of breath or wheezing #6.7 grams progesterone micronized 200 mg 200 mg PO QHS #90 caps 05/21/25 05/21/25 Rx capsule Allergies Allergy/AdvReac Type Severity Reaction Status Date / Time attapulgite Allergy Unknown HIVES Verified 05/21/25 12:59 camphor Allergy Unknown Unknown Verified 05/21/25 12:59 menthol Allergy Unknown Unknown Verified 05/21/25 12:59 fentanyl AdvReac Severe SEVERE, Verified 05/21/25 12:59 PROLONGED N&V Vital Signs Vital Signs - 24 hr 08/14/25 05:16 08/14/25 06:00 08/14/25 07:45 Temperature 97.8 F Pulse Rate 85 81 75 Respiratory Rate 16 18 17 Blood Pressure 111/78 117/75 107/72 Pulse Oximetry 100 100 93 08/14/25 08:52 08/14/25 10:16 Temperature 98.4 F Pulse Rate 83 77 Respiratory Rate 16 16 Blood Pressure 129/91 H 114/72 Pulse Oximetry 97 98 Exam Const: General: comfortable and no acute distress HENMT: Face/Nose/Sinus: Normal nares present Eyes: General: appearance normal, both eyes and all related structures Neck: Neck: no JVD Resp: Auscultation: clear to auscultation bilaterally Cardio: Rate: regular rate Rhythm: regular rhythm GI: Inspection: non-distended GI Palp: Yes Soft to palpation Skin: General skin exam: normal color Extrem: General: normal to inspection Psych: Mental Status: mental status grossly normal Assessment and Plan Assessment and plan (1) Eosinophilic esophagitis: Code(s): K20.0 - Eosinophilic esophagitis Status: Acute Assessment and Plan: will get bx again she tried in the past steroids and currently she is not taking anything will see her in office, she is a candidate for either eohilia or dupixent (2) Food impaction of esophagus: Qualifiers: Encounter type: initial encounter Qualified Code(s): T18.128A - Food in esophagus causing other injury, initial encounter; W44.F3XA - Food entering into or through a natural orifice, initial encounter Code(s): T18.128A - Food in esophagus causing other injury, initial encounter; W44.F3XA - Food entering into or through a natural orifice, initial encounter Status: Acute Assessment and Plan: urgent egd
--- NOTE | 2025-08-14 11:13 | S_PTH ---
PATIENT: Ree May LOC: [facility] U#:[id number] AGE/SX: 49/F ROOM: RE08/14/[address]: Juan Manuel Huang MD : 1975 BED: DIS: 08/14/2025 SPEC #: [id number] RECD: 08/14/25 12:53 STATUS: NOEMY REQ #: [id number] TERESA: 08/14/25 11:[address]: Juan Manuel Huang DEPT: [facility] Surgical RECD BY: Henrietta Horne ENTERED: 08/14/25 12:54 SP TYPE: Surgical OTHR DR: MD Mac Dean MD Tissues: A - Esophageal Biopsy B - Esophageal Biopsy C - Gastric Biopsy Procedures: Hematoxylin and Eosin Stain Gross and Microscopic Level 4
--- OUTSIDE RECORDS SUMMARY | 2025-08-14 11:26 | XMS_ITS | Clinical Summary ---
Author Organization [facility] Address [address] [place] [address] Care Team Providers Care Screen Printing Machine Operator Name Role Phone Jorge Urias MD Primary Care Provider [phone] Allergies Active Allergy Reactions Criticality Noted Date Comments Attapulgite Rash Medium 11/17/2009 Zrnmi-Rixdbiyj-Sgi-Turp-Pet Rash Medium 11/18/19 10 Medications ARMOUR THYROID 90 MG Tab Take 1 tablet (90 mg total) by mouth every morning. 0 Active progesterone 100 MG capsule Take 1 capsule (100 mg total) by mouth daily. 0 Active estradiol 0.05 MG/24HR APPLY 1 PATCH ONE TIME PER WEEK 0 Active PANTOPRAZOLE EC 40 MG tabletIndication s:Eosinophilic esophagitis TAKE 1 TABLET BY MOUTH EVERY DAY 90 tablet 2 1 Active FLOVENT HFA 220 MCG/ACT inhalerIndicatio ns:Eosinophilic esophagitis,S/P endoscopy INHALE 1 PUFF INTO THE LUNGS 2 (TWO) TIMES DAILY. PUFF DIRECTLY INTO THE MOUTH WITHOUT BREATHING .THEN IT SHOULD BE DRY SWALLOWED 36 Inhaler 1 1 Active DENTA 5000 PLUS 1.1 % Cream APPLY TOOTHPASTE 1 2 TIMES DAILY DIRECTED 1 Active vitamin C 1000 MG tablet Take 1 tablet (1,000 mg total) by mouth daily. Active zinc gluconate 50 MG Tab Take 1 tablet (50 mg total) by mouth daily. Active Cholecalciferol (VITAMIN D3) 50 MCG (2000 UT) Tab Take 1 tablet (50 mcg total) by mouth daily. Active progesterone 100 MG capsule 1 Active Active Problems Problem Noted Date Diagnosed Date Foreign body in esophagus 10/21/2023 Gastritis determined by endoscopy 04/14/2020 Esophageal abnormality 04/14/2020 Foreign body alimentary tract 01/15/2020 Family History Medical History Relation Comments Heart Disease Father Hypertension Father Kidney Disease Father Hypertension Maternal Grandfather Lung Cancer Maternal Grandfather smoker Hypertension Maternal Grandmother Lung Cancer Maternal Grandmother smoker No Known Problems Mother Heart Disease Paternal Grandfather Hypertension Paternal Grandfather Heart Disease Paternal Grandmother Hypertension Paternal Grandmother Relation Status Comments Father Maternal Grandfather Maternal Grandmother Mother Paternal Grandfather Paternal Grandmother Social History Tobacco Use Types Packs/Day Years Used Date Smoking Tobacco: Never Smokeless Tobacco: Never Tobacco Cessation:Counseling Given: Not Answered Alcohol Use Standard Drinks/Week Comments Yes 3 (1 standard drink = 0.6 oz pur e alcohol) SOCIALLY/ Beer/Vodka Social Connection and Isolation Panel Answer Date Recorded Frequency of Communication w ith Friends and Family More than three times a week 04/07/2020 Frequency of Social Gatherin gs with Friends and Family Not on file 04/07/2020 Attends Restorationist Services Not on file 04/07 Active Member of Clubs or Organizations Not on f ile 04/07/2020 Attends Club or Organization Meetings Not on ayala e 04/07/2020 Marital Status Not on file 04/07/2020 Overall Financial Resource Strain (CARDIA) Answe r Date Recorded Difficulty of Paying Living Expenses Not hard at all 04/07/2020 PHQ-2 Answer Date Recorded PHQ-2 Score - If the patient scores above 3, please move on to questions 3-9 0 07/01/2021 [facility] [place] of Occupat ional Health - Occupational Stress [...] Orientation Straight 07/01/2021 1: 36 PM CDT Last Filed Vital Signs Vital Sign Reading Time Taken Comments Blood Pressure 99/71 10/21/2023 11:30 AM LICENSED PRACTICAL NURSE Pulse 80 10/21/2023 11:30 AM LICENSED PRACTICAL NURSE Temperature 36.4 C (97.6 F) 10/21/2023 11:12 AM LICENSED PRACTICAL NURSE Respiratory Rate 18 10/21/2023 11:30 AM LICENSED PRACTICAL NURSE Oxygen Saturation 100% 10/21/2023 11:30 AM LICENSED PRACTICAL NURSE Inhaled Oxygen Concentration - - Weight 59.9 kg (132 lb) 10/21/2023 8:18 AM LICENSED PRACTICAL NURSE Height 172.7 cm (5' 8) 10/21/2023 8:18 AM LICENSED PRACTICAL NURSE Body Mass Index 20.07 10/21/2023 8:18 AM LICENSED PRACTICAL NURSE Plan of Treatment Health Maintenance Due Date Last Done Comments Cervical Cancer Screening Pa p Smear (Age 30 to 64) Every 3 Years 1973 Colorectal Cancer Screening Colonoscopy (10 Years) 1973 Annual Physical 1976 Hepatitis C 1991 DTaP, Tdap and Td Vaccines ( 1 - Tdap) 1992 Hepatitis B Vaccines (1 of 3 - 19+ 3-dose series) 1992 Cervical Cancer Screening Pa p with HPV Testing (Age 30 to 64) Every 5 Years 2003 Cervical Cancer Screening with HPV 2003 Mammogram Screening 2013 Pneumococcal Vaccine: 50+ Ye ars (1 of 1 - PCV) 2023 Zoster Vaccines (1 of 2) 2023 COVID-19 Vaccine (1 - 2024-2 6 season) 2025 Influenza Adult (#1) 2025 Hepatitis A Vaccines Aged Out No long er eligible based on patient's age to complete this topic Meningococcal B Vaccine Aged Out No l onger eligible based on patient's age to complete this topic Meningococcal Vaccine Aged Out No vicky joao eligible based on patient's age to complete this topic RSV Immunizations Under 20 Months Aged Out No longer eligible based on patient's age to complete this topic Insurance [facility] BLUE [facility] Care Teams Screen Printing Machine Operator Relationship Specialty Start Date End Date Jorge Urias MD [address] [place] [address] PCP - General FAMILY PRACTICE 01/15/20
--- OUTSIDE RECORDS SUMMARY | 2025-08-14 11:26 | XMS_ITS | Encounter Summary ---
Author Organization [facility] Address [address] [place] [address] Care Team Providers Care Veterinary Milk Specialist Name Role Phone Jorge Urias MD Primary Care Provider [phone] Encounter Details Date Type Department Care Team (Late st Contact Info) Description 04/07/2020 Prep for Procedure [facility] [address] [place] [address] [place] [address] [facility] [address] [place] [address] Social History Tobacco Use Types Packs/Day Years [...] and Family Not on file 04/07/2020 Attends Gnosticism Services Not on file 04/07 Active Member of Clubs or Organizations Not on f ile 04/07/2020 Attends Club or Organization Meetings Not on ayala e 04/07/2020 Marital Status Not on file 04/07/2020 Overall Financial Resource Strain (CARDIA) Answe r Date Recorded Difficulty of Paying Living Expenses Not hard at all 04/07/2020 [facility] [place] of Occupat ional Health - Occupational Stress [...] DETECTED NOT DETECTED 04/13/2020 12:12 AM CDT [facility] Comment: A Not Detected (negative) test [...] providers and patients using the following websites: https://www.[employer].com/home/Covid-19/HCP/[facility]/fact- sheet.html https://www.[employer]Ocean/home/Covid-19/Patients/ QuestIVD/fact-sheet.html This test has been authorized by the FDA under an Emergency Use Authorization (EUA) for use by authorized laboratories. Due to the current public health emergency, [facility] is receiving a high volume of samples [...] about COVID-19 can be found at the [facility] website: www.[facility]/Covid19. Test performed at [facility] [address] [place] [address] Director: LESLIE LIN DO,MPH NASOPHARYNGEAL SWAB / Unknown 04/11/2020 8:10 AM CDT us Ruslan Bray MD MICROBIOLOGY - GENERAL ORDERABLES Final Result [facility] [id number] [place] [address] documented in this encounter Visit Diagnoses Diagnosis Pre-op testing- Primary Preoperative examination, unspecified documented in this encounter Additional Health Concerns Infection Onset Date Last Indicated Resolved Time COVID-19 Rule Out 04/11/2020 04/11/2020 04/13/2020 12:12 AM CDT documented as of this encounter Care Teams Veterinary Milk Specialist Relationship Specialty Start Date End Date Jorge Urias MD [address] [place] [address] PCP - General FAMILY PRACTICE 01/15/20 documented as of this encounter
--- OUTSIDE RECORDS SUMMARY | 2025-08-14 11:27 | XMS_ITS | Encounter Summary ---
Author Organization [facility] Address [address] [place] [address] Care Team Providers Care Candy Polisher Name Role Phone Jorge Urias MD Primary Care Provider Encounter Details Date Type Department Care Team (Late st Contact Info) Description 08/25/2006 Outpatient Historical [facility], [address] Maksim Coronado MD [address] [place] [phone] Social History Tobacco Use Types Packs/Day Years Used Date Smoking Tobacco: Never Assessed Comments Unknown Sex and Gender Information Value Date Recorded Sex Assigned at Not on file Legal Sex Female 5:10 AM CNC MECHANIC Gender Identity Not on file Sexual Orientation Not on file documented as of this encounter Plan of Treatment Not on file documented as of this encounter Visit Diagnoses Not on filedocumented in this encounter Care Teams Candy Polisher Relationship Specialty Start Date End Date Jorge Urias MD [address] [place] [address] PCP - General 12/03/09 documented as of this encounter
--- OUTSIDE RECORDS SUMMARY | 2025-08-14 11:27 | XMS_ITS | Encounter Summary ---
Author Organization [facility] Address [address] [place] [address] Care Team Providers Care Service Advisor Name Role Phone Jorge Urias MD Primary Care Provider Encounter Details Date Type Department Care Team (Late st Contact Info) Description 10/31/2006 Outpatient Historical [facility] Jake King DO [address] [place] [address] Follow-Up Examination, Following Other Surgery (Primary Dx) Social History Tobacco Use Types Packs/Day Years Used Date Smoking Tobacco: Never Assessed Comments Unknown Sex and Gender Information Value Date Recorded Sex Assigned at Not on file Legal Sex Female 5:10 AM NEUROSCIENTIST Gender Identity Not on file Sexual Orientation Not on file documented as of this encounter Plan of Treatment Not on file documented as of this encounter Visit Diagnoses Diagnosis Follow-up examination, following other surgery- Primary documented in this encounter Care Teams Service Advisor Relationship Specialty Start Date End Date Jorge Urias MD [address] [place] [address] PCP - General 12/03/09 documented as of this encounter
--- OUTSIDE RECORDS SUMMARY | 2025-08-14 11:27 | XMS_ITS | Encounter Summary ---
Author Organization [facility] Address [address] [place] [address] Care Team Providers Care Line Leader Name Role Phone Jorge Urias MD Primary Care Provider [phone] Encounter Details Date Type Department Care Team (Late st Contact Info) Description 10/18/2006 Outpatient Historical [facility]UCLEAR MEDICINE [facility] Jake King DO [address] [place] [address] Social History Tobacco Use Types Packs/Day Years Used Date Smoking Tobacco: Never Assessed Comments Unknown Sex and Gender Information Value Date Recorded Sex Assigned at Not on file Legal Sex Female 5:10 AM FRONT END ENGINEER Gender Identity Not on file Sexual Orientation Not on file documented as of this encounter Plan of Treatment Not on file documented as of this encounter Visit Diagnoses Not on filedocumented in this encounter Care Teams Line Leader Relationship Specialty Start Date End Date Jorge Urias MD [address] [place] [address] PCP - General 12/03/09 documented as of this encounter
--- OUTSIDE RECORDS SUMMARY | 2025-08-14 11:27 | XMS_ITS | Encounter Summary ---
Author Organization [facility] Address [address] [place] [address] Care Team Providers Care Watch Adjuster Name Role Phone Jorge Urias MD Primary Care Provider [phone] Encounter Details Date Type Department Care Team (Late st Contact Info) Description 12/02/2006 Outpatient Historical [facility]UCLEAR MED[facility] Jake King DO [address] [place] [address] Social History Tobacco Use Types Packs/Day Years Used Date Smoking Tobacco: Never Assessed Comments Unknown Sex and Gender Information Value Date Recorded Sex Assigned at Not on file Legal Sex Female 5:10 AM NUCLEAR EQUIPMENT DESIGN ENGINEER Gender Identity Not on file Sexual Orientation Not on file documented as of this encounter Plan of Treatment Not on file documented as of this encounter Visit Diagnoses Not on filedocumented in this encounter Care Teams Watch Adjuster Relationship Specialty Start Date End Date Jorge Urias MD [address] [place] [phone] PCP - General 12/03/09 documented as of this encounter
--- OUTSIDE RECORDS SUMMARY | 2025-08-14 11:27 | XMS_ITS | Encounter Summary ---
Author Organization [facility] Address [address] [place] [address] Care Team Providers Care Flexographic Printing Machinist Name Role Phone Jorge Urias MD Primary Care Provider [phone] Encounter Details Date Type Department Care Team (Latest Contact Info) Description 10/02/2006 Outpatient Historical [facility] Elias Barr MD [address] [place] [address] [place] [address] Malignant Neoplasm of Thyroid Gland (CMS/HCC) (Primary Dx) Social History Tobacco Use Types Packs/Day Years Used Date Smoking Tobacco: Never Assessed Comments Unknown Sex and Gender Information Value Date Recorded Sex Assigned at Not on file Legal Sex Female 5:10 AM AGILE JAVA DEVELOPER Gender Identity Not on file Sexual Orientation Not on file documented as of this encounter Plan of Treatment Not on file documented as of this encounter Visit Diagnoses Diagnosis Malignant neoplasm of thyroid gland (CMS/HCC)- Primary Malignant neoplasm of thyroid gland documented in this encounter Care Teams Flexographic Printing Machinist Relationship Specialty Start Date End Date Jorge Urias MD [address] [place] [address] PCP - General 12/03/09 documented as of this encounter
--- OUTSIDE RECORDS SUMMARY | 2025-08-14 11:27 | XMS_ITS | Encounter Summary ---
Author Organization [facility] Address [address] [place] [address] Care Team Providers Care Wind Project Manager Name Role Phone Jorge Urias MD Primary Care Provider Encounter Details Date Type Department Care Team (Late st Contact Info) Description 09/08/2006 Outpatient Historical [facility] Support Serv. (Adt Cardiology-[facility]) [address] [place] [address] Juana Gaytan MD [address] [address] [address] [place] [address] Social History Tobacco Use Types Packs/Day Years Used Date Smoking Tobacco: Never Assessed Comments Unknown Sex and Gender Information Value Date Recorded Sex Assigned at Not on file Legal Sex Female 5:10 AM DIGITAL MARKETER Gender Identity Not on file Sexual Orientation Not on file documented as of this encounter Plan of Treatment Not on file documented as of this encounter Visit Diagnoses Not on filedocumented in this encounter Care Teams Wind Project Manager Relationship Specialty Start Date End Date Jorge Urias MD [address] [place] [phone] PCP - General 12/03/09 documented as of this encounter
--- OUTSIDE RECORDS SUMMARY | 2025-08-14 11:27 | XMS_ITS | Clinical Summary ---
Author Organization [facility] Address [address] [place] [address] Care Team Providers Care Roving Tester Laboratory Name Role Phone Jorge Urias MD Primary Care Provider [phone] Elgin Ford MD Unavailable [phone] Allergies Active Allergy Reactions Criticality Noted Date Comments Attapulgite Rash Medium 11/17/2009 Kgfhb-Xgetzfgu-Gpz-Turp-Pet Rash Medium 11/18/19 10 Fentanyl Nausea & [...] by mouth Anayeli Quercetin Once daily Active Cow[place] Thyroid 90 mg tabletIndications: Postoperative hypothyroidism TAKE [...] & Plan (05/08/2019 1:45 PM CDT): Continue Cowden Thyroid 90 mg daily. Goal is TSH 0.5 - 2, given excellent prognosis. Assessment & Plan (05/02/2018 10:55 AM CDT): Continue Cowden Thyroid 90 mg daily. Goal is TSH [...] on file Legal Sex Female 7:05 AM CONNIE SCRATCHER Gender Identity Female 07/13/2021 1:56 PM CDT Sexual Orientation Not on file Obstetrics History Para Term AB IAB SAB Ectopic Multiple Livin g Live Births 1 Date Outcome GA Total Labor Labor/2nd/3rd Weight Sex Type Anes PTL Kemi A1 A5 Name Clin Last Filed Vital Signs Vital Sign Reading Time Taken Comments Blood Pressure 115/74 08/22/2023 4:04 PM CONNIE SCRATCHER Pulse 75 08/22/2023 4:04 PM CONNIE SCRATCHER Temperature 36.4 C (97.5 F) 08/22/2023 4:04 PM CONNIE SCRATCHER Respiratory Rate - - Oxygen Saturation - [...] Most Recently Relevant to Health Maintenance Insurance [facility] Care Teams Roving Tester Laboratory Relationship Specialty Start Date End Date Jorge Urias MD PCP - General 04/19/17 Elgin Ford MD [address] [place] [address] Referring Physician Obstetrics and Gynecology 01/05/24
--- OUTSIDE RECORDS SUMMARY | 2025-08-14 11:27 | XMS_ITS | Encounter Summary ---
Author Organization [facility] Address 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) Social History Tobacco Use Types Packs/Day Years Used Date Smoking Tobacco: Never Assessed Comments Unknown Sex and Gender Information Value Date Recorded Sex Assigned at Not on file Legal Sex Female 5:10 AM INSTRUMENT REPAIR TECHNICIAN Gender Identity Not on file Sexual Orientation Not on file documented as of this encounter Plan of Treatment Not on file documented as of this encounter Visit Diagnoses Diagnosis Malignant neoplasm of thyroid gland (CMS/HCC)- Primary Malignant neoplasm of thyroid gland documented in this encounter Care Teams Store Sales Consultant Relationship Specialty Start Date End Date Jorge Urias MD [address] [place] [address] PCP - General 12/03/09 documented as of this encounter
--- OUTSIDE RECORDS SUMMARY | 2025-08-14 11:27 | XMS_ITS | Encounter Summary ---
Author Organization [facility] [employer] Address [address] [place] [address] Care Team Providers Care Manager Molecular Name Role Phone Jorge Urias MD Primary Care Provider Encounter Details Date Type Department Care Team (Latest Contact Info) Description 11/11/2007 Outpatient Historical [facility] NUCLEAR MEDIC[facility] Maksim Coronado MD [address] [address] Malignant Neoplasm of Thyroid Gland (CMS/HCC) Social History Tobacco Use Types Packs/Day Years Used Date Smoking Tobacco: Never Assessed Comments Unknown Sex and Gender Information Value Date Recorded Sex Assigned at Not on file Legal Sex Female 5:10 AM RESEARCH AND DEVELOPMENT SCIENTIST Gender Identity Not on file Sexual Orientation Not on file documented as of this encounter Plan of Treatment Not on file documented as of this encounter Visit Diagnoses Diagnosis Malignant neoplasm of thyroid gland (CMS/HCC) Malignant neoplasm of thyroid gland documented in this encounter Care Teams Manager Molecular Relationship Specialty Start Date End Date Jorge Urias MD [address] [place] [address] PCP - General 12/03/09 documented as of this encounter
--- OUTSIDE RECORDS SUMMARY | 2025-08-14 11:27 | XMS_ITS | Clinical Summary ---
Author Organization [facility] Address [address] [place] [address] Phone Care Team Providers Care Brick Mason Name Role Phone Jorge Urias MD Primary Care Provider Allergies Active Allergy Reactions Criticality Noted Date Comments Attapulgite Rash Medium 11/17/2009 Omikv-Yuiawszg-Mwe-Turp-Pet Rash Medium 11/18/19 10 Medications levothyroxine (SYNTHROID) [...] on file Legal Sex Female 5:10 AM TALLOW PUMPER Gender Identity Not on file Sexual Orientation Not on file Last Filed Vital Signs Vital Sign Reading Time Taken Comments Blood Pressure 99/65 11/20/2009 5:40 PM TALLOW PUMPER Pulse 76 11/20/2009 5:40 PM TALLOW PUMPER Temperature 36.4 C (97.6 F) 11/20/2009 5:40 PM TALLOW PUMPER Respiratory Rate 16 11/20/2009 5:40 PM TALLOW PUMPER Oxygen Saturation 99% 11/20/2009 5:40 PM TALLOW PUMPER Inhaled Oxygen Concentration - - Weight 54.4 kg (120 lb) 12/03/2009 9:53 AM CDT Height 170.2 cm (5' 7) 11/20/2009 12:16 PM TALLOW PUMPER Body Mass Index 18.79 11/20/2009 12:16 PM TALLOW PUMPER Plan of Treatment Health Maintenance Due Date [...] 2) 2023 INFLUENZA VACCINE (#1) 2025 Insurance [facility] BLUE [employer] BLUE PPO Advance Directives For more information, please contact: [phone] * Full Code (Latest Code Status on File) Date Activated Date Inactivated Comments 11/20/2009 2:22 PM 11/21/2009 2:01 AM * Full Code Date Activated Date Inactivated Comments 11/20/2009 12:10 PM 11/20/2009 2:22 PM Care Teams Brick Mason Relationship Specialty Start Date End Date Jorge Urias MD [address] [place] [address] [facility] - General 12/03/09
--- OUTSIDE RECORDS SUMMARY | 2025-08-14 11:27 | XMS_ITS | Encounter Summary ---
Author Organization [employer] Address [address] [place] [address] Care Team Providers Care Manager Of Clinical Name Role Phone Jorge Urias MD Primary Care Provider [phone] Encounter Details Date Type Department Care Team (Latest Contact Info) Description 09/08/2006 Outpatient Historical [facility] Elias Barr MD [address] [place] [address] Malignant Neoplasm of Thyroid Gland (CMS/HCC) (Primary Dx) Social History Tobacco Use Types Packs/Day Years Used Date Smoking Tobacco: Never Assessed Comments Unknown Sex and Gender Information Value Date Recorded Sex Assigned at Not on file Legal Sex Female 5:10 AM REAL ESTATE OPERATIONS MANAGER Gender Identity Not on file Sexual Orientation Not on file documented as of this encounter Plan of Treatment Not on file documented as of this encounter Procedures Procedure Name Priority Date/Time Associated Diagnosis Comments CALCIUM LEVEL Routine 09/09/2006 12:15 PM REAL ESTATE OPERATIONS MANAGER CALCIUM LEVEL Routine 09/09/2006 5:00 AM REAL ESTATE OPERATIONS MANAGER CALCIUM LEVEL Routine 09/08/2006 9:20 PM REAL ESTATE OPERATIONS MANAGER CALCIUM LEVEL Routine 09/08/2006 6:41 PM REAL ESTATE OPERATIONS MANAGER POC , URINE Routine 09/08/2006 12:30 PM REAL ESTATE OPERATIONS MANAGER HEMOGLOBIN AND HEMATOCRIT Routine 09/08/2006 12:17 PM REAL ESTATE OPERATIONS MANAGER documented in this encounter Results * CALCIUM LEVEL (09/09/2006 12:15 PM REAL ESTATE OPERATIONS MANAGER) CALCIUM 8.5 8.4 - 10.2 mg/dL INTERFACE SYSTEM 09/09/2006 12:1 5 PM REAL ESTATE OPERATIONS MANAGER us Elias Barr MD CHEMISTRY ORDERABLES Final Resul t Performing Organization Address [facility] Phone Number INTERFACE SYSTEM Refer to clinic/hospital department * (ABNORMAL) CALCIUM LEVEL (09/09/2006 5:00 AM REAL ESTATE OPERATIONS MANAGER) CALCIUM 7.8(L) 8.4 - 10.2 mg/dL INTERFACE SYSTEM 09/09/2006 5:00 AM REAL ESTATE OPERATIONS MANAGER us Elias Barr MD CHEMISTRY ORDERABLES Final Resul t Performing Organization Address [facility] Phone Number INTERFACE SYSTEM Refer to clinic/hospital department * (ABNORMAL) CALCIUM LEVEL (09/08/2006 9:20 PM REAL ESTATE OPERATIONS MANAGER) CALCIUM 8.2(L) 8.4 - 10.2 mg/dL INTERFACE SYSTEM 09/08/2006 9:20 PM REAL ESTATE OPERATIONS MANAGER us Elias Barr MD CHEMISTRY ORDERABLES Final Resul t Performing Organization Address [facility] Phone Number INTERFACE SYSTEM Refer to clinic/hospital department * CALCIUM LEVEL (09/08/2006 6:41 PM REAL ESTATE OPERATIONS MANAGER) CALCIUM 8.6 8.4 - 10.2 mg/dL INTERFACE SYSTEM 09/08/2006 6:41 PM REAL ESTATE OPERATIONS MANAGER us Elias Barr MD CHEMISTRY ORDERABLES Final Resul t Performing Organization Address [facility] Phone Number INTERFACE SYSTEM Refer to clinic/hospital department * POC , URINE (09/08/2006 12:30 PM REAL ESTATE OPERATIONS MANAGER) , URINE POC Negative Negative INTERFACE SYSTEM 09/08/2006 12:3 0 PM REAL ESTATE OPERATIONS MANAGER us Elias Barr MD POINT OF CARE TESTING Final Resu lt INTERFACE SYSTEM Refer to clinic/hospital department * HEMOGLOBIN AND HEMATOCRIT (09/08/2006 12:17 PM REAL ESTATE OPERATIONS MANAGER) HEMOGLOBIN 14.4 11.8 - 14.8 g/dL INTERFACE SYSTEM HEMATOCRIT 41.2 35.5 - 44.0 % INTERFACE SYSTEM 09/08/2006 12:1 7 PM REAL ESTATE OPERATIONS MANAGER us Elias Barr MD HEMATOLOGY ORDERABLES Final Resu lt Performing Organization Address City/[facility] Co de Phone Number INTERFACE SYSTEM Refer to clinic/hospital department documented in this encounter Visit Diagnoses Diagnosis Malignant neoplasm of thyroid gland (CMS/HCC)- Primary Malignant neoplasm of thyroid gland documented in this encounter Care Teams Manager Of Clinical Relationship Specialty Start Date End Date Jorge Urias MD [address] [place] [id number] PCP - General 12/03/09 documented as of this encounter
--- OUTSIDE RECORDS SUMMARY | 2025-08-14 11:27 | XMS_ITS | Encounter Summary ---
Author Organization [email or web address] Address [address] [place] [address] Care Team Providers Care Lead Java Programmer Name Role Phone Jorge Urias MD Primary Care Provider [phone] Encounter Details Date Type Department Care Team (Latest Contact Info) Description 10/10/2007 Outpatient Historical [facility] Maksim Molina MD [address] [place] [address] [address] [place] [address] Malignant Neoplasm of Thyroid Gland (CMS/HCC) Social History Tobacco Use Types Packs/Day Years Used Date Smoking Tobacco: Never Assessed Comments Unknown Sex and Gender Information Value Date Recorded Sex Assigned at Not on file Legal Sex Female 5:10 AM MANAGER CORE Gender Identity Not on file Sexual Orientation Not on file documented as of this encounter Plan of Treatment Not on file documented as of this encounter Procedures Procedure Name Priority Date/Time Associated Diagnosis Comments NM THYROID CA METS WHOLE BODY Routine 10/10/2007 2:10 PM MANAGER CORE documented in this encounter Results * NM THYROID CA METS WHOLE BODY (10/10/2007 2:10 PM MANAGER CORE) Anatomical Region Laterality Modality Neck Other 10/10/2007 2:10 PM MANAGER CORE Narrative 10/12/2007 10:03 AM MANAGER CORE [address] [address] Admit Date: 10/10/2007 LINH QUIROS Sex: F Admit Prov: MAKSIM MOLINA Date: 1975 Primary Care Prov: CMRN: [id number] [id number] [facility] Ordering Prov: N/A Accession Number: [id number] Interpretation I-131 whole-body scan for metastatic thyroid [...] 10/12/2007 10:03 Procedure Note Vera Ray 10/12/2007 [id number] [place], [place] [address] Admit Date: 10/10/2007 BLACK, LINH Sex: F Admit Prov: MAKSIM MOLINA Date: 1975 Primary Care Prov: CMRN: [id number] [facility] [id number] IMAGING SERVICES Ordering Prov: N/A Interpretation I-131 [...] gland documented in this encounter Care Teams Lead Java Programmer Relationship Specialty Start Date End Date Jorge Urias MD [address] [place] [address] PCP - General 12/03/09 documented as of this encounter
--- OUTSIDE RECORDS SUMMARY | 2025-08-14 11:27 | XMS_ITS | Encounter Summary ---
Author Organization [facility] Address [address] [place] [address] Care Team Providers Care Airplane Gastank Liner Assembler Name Role Phone Jorge Urias MD Primary Care Provider [phone] Encounter Details Date Type Department Care Team (Latest Contact Info) Description 10/12/2007 Outpatient Historical [facility] Maksim Choudhury MD [address] [place] [address] Nontoxic Multinodular Goiter Social History Tobacco Use Types Packs/Day Years Used Date Smoking Tobacco: Never Assessed Comments Unknown Sex and Gender Information Value Date Recorded Sex Assigned at Not on file Legal Sex Female 5:10 AM PAPER SPOOLER Gender Identity Not on file Sexual Orientation Not on file documented as of this encounter Plan of Treatment Not on file documented as of this encounter Procedures Procedure Name Priority Date/Time Associated Diagnosis Comments THYROGLOBULIN, TUMOR MARKER Routine 10/12/2007 9:30 AM PAPER SPOOLER TSH Routine 10/12/2007 9:30 AM PAPER SPOOLER documented in this encounter Results * (ABNORMAL) THYROGLOBULIN (10/12/2007 9:30 AM PAPER SPOOLER) THYROGLOBULIN AB <20 <20 IU/mL INT ERFACE SYSTEM THYROGLOBULIN <0.2(L) 2.0 - 35.0 ng/mL INTERFACE SYSTEM Comment: Additional information: Refrigerated Cargo Clerk: DPC Methodology: FORTINO When monitoring patients over time, Tg values obtained with different methods cannot be used interchangeably due to the differences in method and reagent specifications. Lab test performed by: [facility] [address] [place], [place] CAHRISSA SAM MD 10/12/2007 9:30 AM PAPER SPOOLER us Maksim Coronado MD CHEMISTRY ORDERABLES Final Result Performing Organization Address City/[facility] de Phone Number INTERFACE SYSTEM Refer to clinic/hospital department * (ABNORMAL) TSH (10/12/2007 9:30 AM PAPER SPOOLER) TSH 16.44(H) 0.27 - 4.20 uU/mL INTERFACE SYSTEM 10/12/2007 9:30 AM PAPER SPOOLER us Maksim Coronado MD CHEMISTRY ORDERABLES Final Result Performing Organization Address City/[facility] Phone Number INTERFACE SYSTEM Refer to clinic/hospital department documented in this encounter Visit Diagnoses Diagnosis Nontoxic multinodular goiter documented in this encounter Care Teams Airplane Gastank Liner Assembler Relationship Specialty Start Date End Date Jorge Urias MD [address] [place] [address] PCP - General 12/03/09 documented as of this encounter
--- OUTSIDE RECORDS SUMMARY | 2025-08-14 11:27 | XMS_ITS | Encounter Summary ---
Author Organization [employer] Address [address] [place] [address] Care Team Providers Care Tucking Machine Operator Name Role Phone Jorge Urias MD Primary Care Provider [phone] Encounter Details Date Type Department Care Team (Latest Contact Info) Description 09/14/2006 Outpatient Historical [facility] Elias Barr MD [address] [facility] [place] [address] Malignant Neoplasm of Thyroid Gland (CMS/HCC) (Primary Dx) Social History Tobacco Use Types Packs/Day Years Used Date Smoking Tobacco: Never Assessed Comments Unknown Sex and Gender Information Value Date Recorded Sex Assigned at Not on file Legal Sex Female 5:10 AM DRILL PRESS OPERATOR HELPER Gender Identity Not on file Sexual Orientation Not on file documented as of this encounter Plan of Treatment Not on file documented as of this encounter Procedures Procedure Name Priority Date/Time Associated Diagnosis Comments CALCIUM LEVEL Routine 09/14/2006 9:59 AM DRILL PRESS OPERATOR HELPER documented in this encounter Results * CALCIUM LEVEL (09/14/2006 9:59 AM DRILL PRESS OPERATOR HELPER) CALCIUM 9.5 8.4 - 10.2 mg/dL INTERFACE SYSTEM 09/14/2006 9:59 AM DRILL PRESS OPERATOR HELPER us Elias Barr MD CHEMISTRY ORDERABLES Edited INTERFACE SYSTEM Refer to clinic/hospital department documented in this encounter Visit Diagnoses Diagnosis Malignant neoplasm of thyroid gland (CMS/HCC)- Primary Malignant neoplasm of thyroid gland documented in this encounter Care Teams Tucking Machine Operator Relationship Specialty Start Date End Date Jorge Urias MD [address] [place] [address] PCP - General 12/03/09 documented as of this encounter
== END 2025-08-14 12:31 | disposition home or self-care (01) ==
LOC: ANHED 05:58 → ANHSURGERY 10:19
PROVIDERS: Emergency Provider Student in an Organized Health Care Education/Training Program; PCP Family Medicine; Visit Provider Internal Medicine Gastroenterology
PROC: 0DJ08ZZ Inspection of Upper Intestinal Tract, Via Natural or Artificial Opening Endoscopic (ICD-10-PCS; CPT 43239; principal; 2025-08-14 14:00)
DX: T18.128A Food in esophagus causing other injury, initial encounter (principal); K20.0 Eosinophilic esophagitis; W44.F3XA Food entering into or through a natural orifice, initial encounter; K22.2 Esophageal obstruction
CPT/HCPCS: 43239; 43247; 36415; 80053; 83690; 83735; 85025; 88305; 93005; 96374; 99284; J1610; J2704; J7030; J7120